=== PATIENT | female | born 1955 | race Caucasian/White ===

== ENCOUNTER 2019-05-27 21:21 | Inpatient (IN) | payer BC ==
[2019-05-27] MEDS ORDERED: MAGNE/ALUM HYDROXD 30 ML UCUP ONE (21:57)
[2019-05-27] MEDS ORDERED: ONDANSETRON 4 MG/2 ML VIAL ONE (21:58)
[2019-05-27] MEDS ORDERED: NA CHLORIDE 0.9% 500 ML ONE (21:58)
[2019-05-27] MEDS ORDERED: MEPERIDINE HCL 25 MG/0.5 ML ONE (21:58)
[2019-05-27] MEDS ORDERED: LIDOCAINE VISCOUS 2% SOLN 15 ML UDC ONE (21:59)
[2019-05-27 22:16] LABS: Absolute Lymphocytes (CBC) 1.4 K/uL (0.7-4.9); Basophils % 0.4 % (0-1.3); Lymphocytes % 13.5 % (15.3-44.8); MPV 8.6 fL (7.6-11.3); RBC Red Blood Cell Count 4.74 M/uL (3.86-4.86)
[2019-05-27 22:48] LABS: Albumin 3.7 g/dL (3.4-5.0); Bilirubin Direct 0.2 mg/dL (0-0.2); Bilirubin Total 0.7 mg/dL (0.2-1.0); Potassium 3.3 mmol/L (3.5-5.1); Protein, Total 7.4 g/dL (6.4-8.2)
[2019-05-27 22:54] LABS: Urine Blood 1+ (NEG); Urine Glucose NEGATIVE (NEG); Urine Protein NEGATIVE (NEG); Urine Specific Gravity 1.015 (1.005-1.030)
[2019-05-27 22:58] LABS: Urine Bacteria <20 /HPF (<20); Urine Culture Reflex Order NOT NEEDED; Urine RBC <5 /HPF (NONE SEEN)
--- NOTE | 2019-05-28 01:56 | ER ---
Nurse's Notes [facility] Name: Marion Dawson Age: 63 yrs Sex: Female : 1955 Arrival Date: 05/27/2019 Time: 21:24 Bed 16 Private MD: Diagnosis: Acute pancreatitis, unspecified Presentation: 05/27 21:50 Presenting complaint: Patient states: C/O on and off abd pain radiating to the back wh accompaied by nausea that started 4 days ago. Transition of care: patient was not received from another setting of care. Onset of symptoms was May 25, 2019. Risk Assessment: Do you want to hurt yourself or someone else? Patient reports no desire to harm self or others. Initial Sepsis Screen: Does the patient meet any 2 criteria? No. Patient's initial sepsis screen is negative. Does the patient have a suspected source of infection? No. Patient's initial sepsis screen is negative. Care prior to arrival: None. 21:50 Method Of Arrival: Ambulatory 21:50 Acuity: YANCY 3 wh Triage Assessment: 05/28 00:31 General: Appears in no apparent distress. Pain: Complains of pain in abdomen Pain wh radiates to back Pain currently is 8 out of 10 on a pain scale. Quality of pain is described as aching, Pain began 2-3 days ago. EENT: No signs and/or symptoms were reported regarding the EENT system. Neuro: Level of Consciousness is awake, alert, obeys commands, Oriented to person, place, time, situation, Appropriate for age. Cardiovascular: Heart tones S1 S2 Capillary refill < 3 seconds. Respiratory: Airway is patent Respiratory effort is even, unlabored, Respiratory pattern is regular, symmetrical. GI: Abdomen is flat, non-distended, Bowel sounds present X 4 quads. Abd is soft and non tender X 4 quads. : No signs and/or symptoms were reported regarding the genitourinary system. Derm: Skin is intact, is healthy with good turgor, Skin is pink, warm \T\ dry. normal. Musculoskeletal: Range of motion: intact in all extremities. Historical: - Allergies: 00:37 Lisinopril; 00:37 Phenobarbital; wh - PMHx: 00:37 Hypertension; wh - Immunization history:: Adult Immunizations up to date. - Social history:: Smoking status: Patient/guardian denies using tobacco. - Family history:: not pertinent. - Ebola Screening: : Patient negative for fever greater than or equal to 101.5 degrees Fahrenheit, and additional compatible Ebola Virus Disease symptoms Patient denies exposure to infectious person. - Hospitalizations: : No recent hospitalization is reported. Screenin:30 Abuse screen: Denies threats or abuse. Denies injuries from another. Nutritional wh screening: No deficits noted. Tuberculosis screening: No symptoms or risk factors identified. Fall Risk None identified. Assessment: 00:32 Reassessment: See Triage Assessment. wh 01:58 General: Appears in no apparent distress. Behavior is calm, cooperative, appropriate ea for age. Neuro: Level of Consciousness is awake, alert, obeys commands, Oriented to person, place, time, situation. Cardiovascular: Patient's skin is warm and dry. Respiratory: Airway is patent Respiratory effort is even, unlabored, Respiratory pattern is regular, symmetrical. Derm: Skin is pink, warm \T\ dry. Musculoskeletal: Circulation, motion, and sensation intact. 02:30 Reassessment: Patient and/or family updated on plan of care and expected duration. Pain ea level reassessed. Patient is alert, oriented x 3, equal unlabored respirations, skin warm/dry/pink. 03:44 Reassessment: Pt resting with eye closed, respirations even and unlabored. Chest ea expansions even and symmetrical. No s/s of pain or discomfort noted at this time. 07:29 Reassessment: PT TO U/S. bp Vital Signs: 05/27 23:30 BP 144 / 96; Pulse 86; Resp 18; Pulse Ox 98% on R/A; wh 05/28 00:38 BP 125 / 76; Pulse 86; Resp 18; Pulse Ox 97% on R/A; wh 01:40 BP 142 / 90; Pulse 91; Resp 18; Pulse Ox 97% on R/A; ea 02:00 BP 170 / 83; Pulse 94; Resp 18; Pulse Ox 98% on R/A; ea 03:00 BP 117 / 67; Pulse 74; Resp 18; Pulse Ox 95% on R/A; ea ED Course: 05/27 21:24 Patient arrived in ED. ag3 21:37 Juan Jose Lamas MD is Attending Physician. rn 21:51 Radiology exam delayed due to lab results not completed at this time. (BUN/Creatinine) 2 IV insertion attempt and/or patient not having appropriate IV at this time. 21:53 Tracy Walton is Primary Nurse. 22:07 Inserted saline lock: 22 gauge in right antecubital area, using aseptic technique. 6 22:15 Radiology exam delayed due to lab results not completed at this time. (BUN/Creatinine). 2 22:25 Radiology exam delayed due to lab results not completed at this time. (BUN/Creatinine). 2 22:38 Radiology exam delayed due to lab results not completed at this time. (BUN/Creatinine). [facility] 05/28 00:30 Triage completed. 00:34 Arm band placed on right wrist. 00:37 Patient has correct armband on for positive identification. Bed in low position. Call light in reach. Side rails up X 1. Pulse ox on. NIBP on. 01:11 CT completed. Patient tolerated procedure well. Patient moved to CT via stretcher. Patient moved back from CT. 01:12 CT Abd/Pelvis - IV Contrast Only In Process Unspecified. EDMS 01:55 Bry Pack DO is Hospitalizing Provider. rn 03:43 No provider procedures requiring assistance completed. Patient admitted, IV remains in ea place. Administered Medications: 05/27 22:00 Drug: GI Cocktail without - (Maalox Suspension 30 ml, Lidocaine Liquid 2 % 15 cc3 ml) Route: PO; 05/28 01:50 Follow up: Response: No adverse reaction 05/27 22:05 Drug: NS 0.9% 500 ml Route: IV; Rate: bolus; Site: right antecubital; [facility] 05/28 03:45 Follow up: IV Status: Completed infusion; IV Intake: 500ml 05/27 22:10 Drug: Demerol 25 mg {Note: RASS 0.} Route: IVP; Site: right antecubital; [facility] 05/28 01:50 Follow up: Response: No adverse reaction; RASS: Alert and Calm (0) 05/27 22:15 Drug: Zofran 4 mg Route: IVP; Site: right antecubital; [facility] 05/28 03:45 Follow up: Response: No adverse reaction ea Intake: 03:45 IV: 500ml; Total: 500ml. ea Outcome: 01:55 Decision to Hospitalize by Provider. rn 03:43 Admitted to ER Hold. Please see [facility] for further documentation. ea 03:43 Condition: stable 03:43 Instructed on the need for admit. 08:08 Patient left the ED. ph Signatures: Dispatcher [employer] Chris Velez Roman, MD MD rn Hall, Patricia, RN RN Eryn Gibson [facility] Rina Jackson RN RN ea Habalo, Winsy wh Peltier, Brian, RN RN Albina Pérez 3 Viv Guthrie 3 Jeri Cesar cm6
--- NOTE | 2019-05-28 01:57 | EDPHYS ---
Physician Documentation [facility] Name: Marion Dawson Age: 63 yrs Sex: Female : 1955 Arrival Date: 05/27/2019 Time: 21:24 Bed 16 Private MD: ED Physician Juan Jose Lamas HPI: 05/27 21:52 This 63 yrs old Female presents to ER via Unassigned with complaints of rn Abdominal Pain. 21:52 The patient presents with abdominal pain in the upper abdomen. Onset: The rn symptoms/episode began/occurred 1 week(s) ago. The symptoms radiate to back. Associated signs and symptoms: Pertinent positives: fever, nausea, Pertinent negatives: blood in stools, constipation, diarrhea, dysuria, palpitations, shortness of breath, vomiting. Modifying factors: The symptoms are alleviated by nothing, the symptoms are aggravated by food. Severity of pain: At its worst the pain was moderate in the emergency department the pain has improved. The patient has not experienced similar symptoms in the past. The patient has not recently seen a physician. Historical: - Allergies: 05/28 00:37 Lisinopril; wh 00:37 Phenobarbital; wh - PMHx: 00:37 Hypertension; wh - Immunization history:: Adult Immunizations up to date. - Social history:: Smoking status: Patient/guardian denies using tobacco. - Family history:: not pertinent. - Ebola Screening: : Patient negative for fever greater than or equal to 101.5 degrees Fahrenheit, and additional compatible Ebola Virus Disease symptoms Patient denies exposure to infectious person. - Hospitalizations: : No recent hospitalization is reported. ROS: 05/27 21:52 Constitutional: + fever Eyes: Negative for injury, pain, redness, and discharge, Neck: rn Negative for injury, pain, and swelling, Cardiovascular: Negative for chest pain, palpitations, and edema, Respiratory: Negative for shortness of breath, cough, wheezing, and pleuritic chest pain, Abdomen/GI: + abdominal pain, + nausea MS/Extremity: Negative for injury and deformity, Skin: Negative for injury, rash, and discoloration, Neuro: + headache and generalized fatigue Exam: 21:52 Constitutional: This is a well developed, well nourished patient who is awake, alert, rn and in no acute distress. Head/Face: Normocephalic, atraumatic. Eyes: Pupils equal round and reactive to light, extra-ocular motions intact. Lids and lashes normal. Conjunctiva and sclera are non-icteric and not injected. Cornea within normal limits. Periorbital areas with no swelling, redness, or edema. ENT: MMM Cardiovascular: Regular rate and rhythm. No pulse deficits. Respiratory: No increased work of breathing, no retractions or nasal flaring. Abdomen/GI: soft, + mild epigastric tenderness, no rebound MS/ Extremity: Pulses equal, no cyanosis. Neurovascular intact. Full, normal range of motion. Equal circumference. Neuro: Awake and alert, GCS 15, oriented to person, place, time, and situation. Cranial nerves II-XII grossly intact. Motor strength 5/5 in all extremities. Sensory grossly intact. Vital Signs: 23:30 BP 144 / 96; Pulse 86; Resp 18; Pulse Ox 98% on R/A; wh 05/28 00:38 BP 125 / 76; Pulse 86; Resp 18; Pulse Ox 97% on R/A; wh 01:40 BP 142 / 90; Pulse 91; Resp 18; Pulse Ox 97% on R/A; ea 02:00 BP 170 / 83; Pulse 94; Resp 18; Pulse Ox 98% on R/A; ea 03:00 BP 117 / 67; Pulse 74; Resp 18; Pulse Ox 95% on R/A; ea MDM: 05/27 21:37 Patient medically screened. rn 05/28 01:53 Differential diagnosis: cholecystitis, Cholelithiasis, diverticulitis, gastritis, rn gastroesophageal reflux disease, non-specific abd pain, pancreatitis. Data reviewed: vital signs, nurses notes, lab test result(s), radiologic studies, CT scan, and as a result, I will admit patient. Counseling: I had a detailed discussion with the patient and/or guardian regarding: the historical points, exam findings, and any diagnostic results supporting the discharge/admit diagnosis, lab results, radiology results, the need for further work-up and treatment in the hospital. Response to treatment: the patient's symptoms have mildly improved after treatment, and as a result, I will admit patient. Admission orders: after a detailed discussion of the patient's condition and case, the admit orders are written by me. ED course: Patient with acute pancreatitis, no gallbladder pathology, never had pancreatitis before, will admit to Dr. Pack for further testing and pain control/fluids.. 05/27 21:48 Order name: Basic Metabolic Panel; Complete Time: 23:39 05/27 21:48 Order name: CBC with Diff; Complete Time: 23:39 05/27 21:48 Order name: Hepatic Function; Complete Time: 23:39 05/27 21:48 Order name: Lipase; Complete Time: 23:39 05/27 21:55 Order name: Urine Microscopic Only; Complete Time: 23:39 05/27 22:31 Order name: Urine Dipstick--Ancillary (enter results); Complete Time: 23:39 ag4 05/27 21:48 Order name: CT Abd/Pelvis - IV Contrast Only 05/28 00:20 Order name: Lipid Profile 05/28 00:37 Order name: Lipid Profile; Complete Time: 01:27 EDMS 05/28 06:24 Order name: T4 Free EDDE 05/28 06:24 Order name: Lipase [facility] 05/28 06:24 Order name: Thyroid Stimulating Hormone [facility] 05/27 21:48 Order name: IV Saline Lock; Complete Time: 22:17 05/27 21:48 Order name: Labs collected and sent; Complete Time: 22:35 05/27 21:55 Order name: Urine Dipstick-Ancillary (obtain specimen); Complete Time: 23:36 rn Administered Medications: 05/27 22:00 Drug: GI Cocktail without - (Maalox Suspension 30 ml, Lidocaine Liquid 2 % 15 cc3 ml) Route: PO; 05/28 01:50 Follow up: Response: No adverse reaction 05/27 22:05 Drug: NS 0.9% 500 ml Route: IV; Rate: bolus; Site: right antecubital; [facility] 05/28 03:45 Follow up: IV Status: Completed infusion; IV Intake: 500ml 05/27 22:10 Drug: Demerol 25 mg {Note: RASS 0.} Route: IVP; Site: right antecubital; [facility] 05/28 01:50 Follow up: Response: No adverse reaction; RASS: Alert and Calm (0) 05/27 22:15 Drug: Zofran 4 mg Route: IVP; Site: right antecubital; [facility] 05/28 03:45 Follow up: Response: No adverse reaction ea Disposition: 05/28/19 01:55 Hospitalization ordered by Bry Pack for Observation. Preliminary diagnosis is Acute pancreatitis, unspecified. - Bed requested for Telemetry/MedSurg (observation). - Status is Observation. ph - Condition is Stable. - Problem is new. - Symptoms have improved. UTI on Admission? No Signatures: Dispatcher [employer] EDMS Sharon Hester RN RN Juan Jose Lamas MD MD rn Hall, Patricia, RN RN Isabelle, Tracy Albina Yepez cc3 Rina Jackson RN, ea Corrections: (The following items were deleted from the chart) 02:57 01:55 Hospitalization Ordered by Bry Pack DO for Observation. Preliminary diagnosis is Acute pancreatitis, unspecified. Bed requested for Telemetry/MedSurg (observation). Status is Observation. Condition is Stable. Problem is new. Symptoms have improved. UTI on Admission? No. rn 05:46 02:57 05/28/2019 01:55 Hospitalization Ordered by Bry Pack DO for Observation. mw Preliminary diagnosis is Acute pancreatitis, unspecified. Bed requested for [facility] ER HOLD. Status is Observation. Condition is Stable. Problem is new. Symptoms have improved. UTI on Admission? No. mw 08:08 05:46 05/28/2019 01:55 Hospitalization Ordered by Bry Pack DO for Observation. ph Preliminary diagnosis is Acute pancreatitis, unspecified. Bed requested for Telemetry/MedSurg (observation). Status is Observation. Condition is Stable. Problem is new. Symptoms have improved. UTI on Admission? No. mw
--- NOTE | 2019-05-28 02:18 | P.HP ---
Certification for Inpatient Patient admitted to: Observation With expected LOS: <2 Midnights Patient will require the following post-hospital care: None Practitioner: I am a practitioner with admitting privileges, knowledge of patient current condition, hospital course, and medical plan of care. Services: Services provided to patient in accordance with Admission requirements found in Title 42 Section 412.3 of the Code of Federal Regulations Patient History Date of Service: 05/28/19 Primary Care Provider: Dr. Rolle; GI-Dr. Greene([place], [place]) Reason for admission: Epigastric abdominal pain History of Present Illness: 63-year-old female presented to the emergency room with epigastric abdominal pain, nausea and vomiting. Patient with history of hypertension and diverticulitis presented to the emergency room with epigastric abdominal pain. She reported that she has been having pain over the last week. It has been getting progressively worse. She rated the pain today around 10/10. It was associated with some nausea and vomiting. She denies any fever, chills. Denies any significant diarrhea or constipation. Pain was worse with food. She did report sinus congestion with headache today. No sick contacts noted. In the ER patient evaluated. Lipase elevated at 1025. AST, ALT and total bilirubin within normal range. Triglycerides 63. White count 10.3, hemoglobin 13. Sodium 131, potassium 3.3. CT abdomen shows mild pancreatitis. No biliary abnormality noted. Gallbladder appears normal. Patient was admitted for further evaluation and treatment. When I saw the patient ER, pain improved. She is without any significant distress. She denies any alcohol use. She denies any recent new medications other than restarting probiotics recently. This is her 1st episode of pancreatitis. Home medications list reviewed: Yes - Past Medical/Surgical History Diabetic: No -: Hypertension -: Diverticulitis -: Psychosocial/ Personal History: Patient is and lives at home. - Family History Mother -: Cancer (Breast cancer) - Social History Smoking Status: Never smoker Alcohol use: No CD- Drugs: No Caffeine use: Yes Place of Residence: Home Review of Systems General: As per HPI Eyes: Unremarkable ENT: Unremarkable Respiratory: Unremarkable Cardiovascular: Unremarkable Gastrointestinal: Nausea, Vomiting, Abdominal Pain, As per HPI Genitourinary: Unremarkable Musculoskeletal: Unremarkable Integumentary: Unremarkable Neurological: Unremarkable Lymphatics: Unremarkable Physical Examination - Physical Exam General: Alert, In no apparent distress, Oriented x3, Cooperative HEENT: Atraumatic, Normocephalic, PERRLA, Other (Mild dry mucous membranes) Neck: Supple, No Thyromegaly Respiratory: Clear to auscultation bilaterally, Normal air movement Cardiovascular: Normal pulses, Regular rate/rhythm Gastrointestinal: Normal bowel sounds, Soft and benign, Non-distended, No masses , No rebound, No guarding, Tenderness (Mild pain to the epigastric region) Musculoskeletal: No contractures, No erythema, No tenderness, No warmth Integumentary: No tenderness/swelling, No erythema, No warmth, No cyanosis Neurological: Normal speech, Normal strength at 5/5 x4 extr, Normal tone, Normal affect - Studies Laboratory Data (last 24 hrs) 05/27/19 22:03: Triglycerides 63, Cholesterol 164, HDL Cholesterol 62 H, Cholesterol/HDL Ratio 2.65 05/27/19 22:03: WBC 10.3, Hgb 13.6, Hct 40.0, Plt Count 276 05/27/19 22:03: Sodium 131 L, Potassium 3.3 L, BUN 5 L, Creatinine 0.70, Glucose 112 H, Total Bilirubin 0.7, AST 12 L, ALT 19, Alkaline Phosphatase 99, Lipase 1025 H Assessment and Plan - Plan Impression: Epigastric abdominal pain with nausea and vomiting secondary to acute mild pancreatitis likely viral Hypokalemia with hyponatremia likely related to underlying dehydration Hypertension Plan: Epigastric abdominal pain with nausea and vomiting secondary to acute mild pancreatitis likely viral: Patient will be admitted for further evaluation and treatment. This is her 1st episode of pancreatitis. This is likely viral in nature as triglycerides within normal range, LFTs and bili Wilson within normal range. CT scan did not reveal any biliary abnormality along with normal gallbladder. Will obtain gallbladder ultrasound to further assess. Will obtain blood cultures to rule out bacterial etiology. Will keep the patient NPO at this time. Will provide medication for nausea and pain. Encourage ambulation. Will advance diet once pain better controlled. Likely discharge in the next 24-48 hr with clinical improvement. Patient may follow up with her GI specialist as an outpatient. Daytime hospitalist team will continue care. Hypokalemia with hyponatremia likely related to underlying dehydration: Will continue with IV fluids. Will replace electrolytes. Continue monitor closely. Hypertension: Patient takes Arb inhibitor, hydrochlorothiazide and metoprolol at home. Will provide IV Lopressor at this time to maintain blood pressure less than 160 systolic. Once able to take oral intake then her medications can be restarted. Discharge Plan: Home Plan to discharge in: 48 Hours - Advance Directives Does patient have a Living Will: No Does patient have a Durable POA for Healthcare: No - Code Status/Comfort Care Code Status Assessed: Yes (Patient is full code) Time Spent Managing Pts Care (In Minutes): 55
[2019-05-28] MEDS ORDERED: ACETAMINOPHEN 500 MG TAB PO PRN (05:04)
[2019-05-28] MEDS: NA CHLORIDE 0.9% 1,000 ML IV SCH ×2 (05:04→15:04)
[2019-05-28] MEDS ORDERED: ACETAMINOPHEN 650MG/RECT SUPP RECT PRN (05:04)
[2019-05-28] MEDS ORDERED: ONDANSETRON 4 MG/2 ML VIAL ONE (06:18)
[2019-05-28] MEDS ORDERED: MORPHINE 2 MG/ML SYR ONE (06:18)
[2019-05-28 06:24] LABS: Thyroid Stimulating Hormone 3.5 uIU/mL (0.360-3.740)
[2019-05-28] MEDS: ONDANSETRON 4 MG/2 ML VIAL IV PRN ×2 (06:25→14:08)
[2019-05-28] MEDS: MORPHINE 2 MG/ML SYR IV PRN ×2 (06:26→14:07)
[2019-05-28] MEDS ORDERED: POTASSIUM CL 40 MEQ in NA CHLORIDE 0.9% 500 ML IV SCH (08:00)
[2019-05-28] MEDS: FAMOTIDINE 20 MG/2 ML VIAL IV SCH ×2 (08:46→20:52)
[2019-05-28] MEDS: ENOXAPARIN 40 MG/0.4 ML SQ SCH (08:47)
[2019-05-28] MEDS ORDERED: METOPROLOL TARTRATE 5 MG/5 ML INJ IV PRN (09:00)
--- NOTE | 2019-05-28 10:29 | RAD REPORT ---
EXAM DESCRIPTION: US - Abdomen Exam Complete - 05/28/2019 7:52 am CLINICAL HISTORY: Abdominal pain COMPARISON: May 28, 2019 cat scan FINDINGS: The liver has an increased echotexture. A gallstone is not seen. The gallbladder wall is not thickened. The biliary tree is normal caliber. The pancreas is enlarged and heterogeneous. A pseudocyst is not seen The right kidney measures 10 centimeters with a normal echotexture. The left kidney measures 10 centimeters with a normal echotexture. The spleen measures 11 centimeters. The abdominal aorta and inferior vena cava appear unremarkable IMPRESSION: Pancreatitis Increased hepatic echotexture consistent with fatty infiltration
--- NOTE | 2019-05-28 11:00 | RAD REPORT ---
EXAM DESCRIPTION: CT - Abdomen Pelvis W Contrast - 05/28/2019 5:38 am CLINICAL HISTORY: Abdominal pain. COMPARISON: None. TECHNIQUE: Axial CT imaging of the abdomen and pelvis performed with intravenous contrast. Reformatt ed coronal and sagittal images reviewed. A dose reduction technique was utilized with automated exposure control according to patient size. FINDINGS: LOWER THORAX: Minimal lingula atelectasis. There is a noncalcified subpleural 9 mm nodule posterior lateral left lower lobe. Heart is normal in size. ABDOMEN: LIVER/GALLBLADDER: Mild decreased attenuation due to fatty infiltration. Upper normal liver size. No liver mass or biliary dilatation. Normal gallbladder. SPLEEN/PANCREAS: Normal spleen. There is mild edema within the peripancreatic fat adjacent to the pa ncreatic body and tail. No duct dilatation or mass. The pancreatic parenchyma is mildly edematous thr oughout the body. Normal appearance of the splenic artery and vein. KIDNEYS/ADRENAL GLANDS: Normal adrenal glands. Unremarkable right and left kidney. RETROPERITONEAL VESSELS/NODES: Mild aorta atherosclerosis. Normal aorta and inferior vena cava calib er. No adenopathy. Mesenteric vessels are well-opacified. BOWEL: Normal stomach. The small bowel loops appear normal. Normal appendix in retrocecal position i n the right lower quadrant. Mild descending and sigmoid colon diverticulosis. No diverticulitis. MESENTERY/PERITONEUM: No central mesenteric adenopathy. No ascites or free air. PELVIS: BLADDER/GENITAL ORGANS: Normal bladder. Normal uterus and ovaries. PERITONEUM: No free fluid or adenopathy. BONES AND SOFT TISSUES: Vacuum disc at L5-S1. Normal bony pelvis and hips. No soft tissue body. IMPRESSION: 1. Mild pancreatitis with no evidence of pseudocyst, necrosis, or pancreatic mass. No pa ncreatic duct dilatation. No biliary stone. 2. Mild hepatic steatosis. 3. Mild descending and sigmoid colon diverticulosis. No diverticulitis. 4. 9 mm left lower lobe noncalcified pulmonary nodule. 9.0 mm solid pulmonary nodule. Consider a non-contrast Chest CT at 3 months, a PET/CT, or tissue samp ling. These guidelines do not apply to patients younger than 35 years, immunocompromised patients, and alejandra ents with cancer. Follow up in patients with significant comorbidities as clinically warranted. For l jasmin cancer screening, adhere to Lung-RADS guidelines. Reference: Radiology. 2017; 284(1):228-43. Electronically signed by: Alcira Doll DO 05/28/2019 1:32 AM CDT Due to temporary technical issues with the PACS/Fluency reporting system, reports are being signed by the in house radiologist as a courtesy to ensure prompt reporting. The interpreting radiologist is f ully responsible for the content of the report.
[2019-05-28 15:12] LABS: Urine Appearance CLEAR; Urine Bilirubin NEGATIVE (NEG); Urine Blood 1+ (NEG); Urine Color YELLOW; Urine Glucose NEGATIVE (NEG); Urine Protein NEGATIVE (NEG); Urine Specific Gravity 1.015 (1.005-1.030); Urine Urobilinogen 0.2 mg/dL (0.2-1.0)
[2019-05-28 15:15] LABS: Urine Microscopic Reflex ORDER UMIC
[2019-05-28 15:25] LABS: Urine Bacteria >50 /HPF (<20); Urine Culture Reflex Order REFLEXED
[2019-05-29] MEDS: NA CHLORIDE 0.9% 1,000 ML IV SCH (02:01)
[2019-05-29 06:25] LABS: Basophils % 0.5 % (0-1.3); Hematocrit 36.3 % (36.0-45.0); MPV 8.7 fL (7.6-11.3); RBC Red Blood Cell Count 4.26 M/uL (3.86-4.86)
[2019-05-29 06:45] LABS: ALT/SGPT 21 U/L (12-78); AST/SGOT 19 U/L (15-37); Albumin 3.1 g/dL (3.4-5.0); Alkaline Phosphatase 76 U/L (45-117); BUN Blood Urea Nitrogen 5 mg/dL (7-18); Bicarbonate 25 mmol/L (21-32); Bilirubin Total 0.5 mg/dL (0.2-1.0); Glucose Level 106 mg/dL (74-106); Lipase 1077 U/L (73-393); Magnesium 2.4 mg/dL (1.8-2.4); Potassium 4.3 mmol/L (3.5-5.1); Protein, Total 6.4 g/dL (6.4-8.2); Sodium Level 138 mmol/L (136-145)
[2019-05-29] MEDS: ENOXAPARIN 40 MG/0.4 ML SQ SCH (08:11)
[2019-05-29] MEDS: FAMOTIDINE 20 MG/2 ML VIAL IV SCH (08:11)
--- NOTE | 2019-05-29 11:34 | P.DS ---
Admission Date: 05/28/19 Discharge Date: 05/29/19 Primary Care Provider: Dr. Rolle; GI-Dr. Greene([place], [place]) Disposition: ROUTINE DISCHARGE Discharge Condition: GOOD Reason for Admission: Epigastric abdominal pain Brief History of Present Illness: 63-year-old female presented to the emergency room with epigastric abdominal pain, nausea and vomiting. Patient with history of hypertension and diverticulitis presented to the emergency room with epigastric abdominal pain. She reported that she has been having pain over the last week. It has been getting progressively worse. She rated the pain today around 10/10. It was associated with some nausea and vomiting. She denies any fever, chills. Denies any significant diarrhea or constipation. Pain was worse with food. She did report sinus congestion with headache today. No sick contacts noted. In the ER patient evaluated. Lipase elevated at 1025. AST, ALT and total bilirubin within normal range. Triglycerides 63. White count 10.3, hemoglobin 13. Sodium 131, potassium 3.3. CT abdomen shows mild pancreatitis. No biliary abnormality noted. Gallbladder appears normal. Patient was admitted for further evaluation and treatment. When I saw the patient ER, pain improved. She is without any significant distress. She denies any alcohol use. She denies any recent new medications other than restarting probiotics recently. This is her 1st episode of pancreatitis. Hospital Course: Overall during the hospital stay patient remained stable Patient was initially admitted to the hospital for acute pancreatitis was started on IV fluids and pain management while here in the hospital. Patient had lipid panel done here along with abdominal CT and ultrasound to find the cause of the pancreatitis. Abdominal CT was negative for any gallbladder abnormality. Was positive for hepatic fatty infiltration. Abdominal ultrasound was also positive for hepatic infiltration. Patient's lipid panel was within normal limits. Once patient was feeling better her diet was advanced which she tolerated well and was advanced to a GI soft diet further. Patient did well overall and thus was discharged home under stable condition and was asked to follow up with primary care provider in about 1-2 days post discharge. Patient was asked to continue on low-cholesterol diet while at home. Vital Signs/Physical Exam: Temp Pulse Resp BP Pulse Ox 97.0 F 80 16 141/74 H 95 05/29/19 08:00 05/29/19 08:00 05/29/19 08:00 05/29/19 08:00 05/29/19 08:00 General: Alert, In no apparent distress HEENT: Atraumatic, PERRLA, EOMI Neck: Supple, JVD not distended Respiratory: Clear to auscultation bilaterally, Normal air movement Cardiovascular: Regular rate/rhythm, Normal S1 S2 Gastrointestinal: Normal bowel sounds, No tenderness Musculoskeletal: No tenderness Integumentary: No rashes Neurological: Normal speech, Normal tone, Normal affect Lymphatics: No axilla or inguinal lymphadenopathy Laboratory Data at Discharge: WBC 6.3 K/uL (4.3-10.9) D 05/29/19 06:08 Hgb 12.2 g/dL (12.0-15.0) 05/29/19 06:08 Hct 36.3 % (36.0-45.0) 05/29/19 06:08 Plt Count 245 K/uL (152-406) 05/29/19 06:08 Sodium 138 mmol/L (136-145) 05/29/19 06:08 Potassium 4.3 mmol/L (3.5-5.1) 05/29/19 06:08 BUN 5 mg/dL (7-18) L 05/29/19 06:08 Creatinine 0.62 mg/dL (0.55-1.3) 05/29/19 06:08 Glucose 106 mg/dL (74-106) 05/29/19 06:08 Magnesium 2.4 mg/dL (1.8-2.4) 05/29/19 06:08 Total Bilirubin 0.5 mg/dL (0.2-1.0) 05/29/19 06:08 AST 19 U/L (15-37) 05/29/19 06:08 ALT 21 U/L (12-78) 05/29/19 06:08 Alkaline Phosphatase 76 U/L (45-117) 05/29/19 06:08 Triglycerides 63 mg/dL (<150) 05/27/19 22:03 Cholesterol 164 mg/dL (<200) 05/27/19 22:03 HDL Cholesterol 62 mg/dL (40-60) H 05/27/19 22:03 Cholesterol/HDL Ratio 2.65 05/27/19 22:03 Lipase 1077 U/L (73-393) H 05/29/19 06:08 Home Medications: Metoprolol Succinate [Toprol Xl] 1 tab PO DAILY 05/28/19 Olmesartan Medoxomil 1 tab PO DAILY 05/28/19 hydroCHLOROthiazide [Hydrochlorothiazide*] 1 tab PO DAILY 05/28/19 Amoxicillin/Potassium Clav [Augmentin 875-125 Tablet] 1 each PO BID #14 tablet 05/29/19 New Medications: Amoxicillin/Potassium Clav [Augmentin 875-125 Tablet] 1 each PO BID #14 tablet Diet: Regular Activity: Ad hawa Followup: Jay Fish MD [ASSOCIATE-ACTIVE - CAN ADMIT] - (call to schedule appointment)
== END 2019-05-29 11:18 | disposition home or self-care (01) | DRG 439 ==
LOC: ER 21:21 → ERHOLD 05-28 02:06 → 4TH 05-28 07:57 → OBSVTOIN 05-28 11:10
PROVIDERS: ADMIT Family Medicine; ATTEND Family Medicine
DX: K85.80 Other acute pancreatitis without necrosis or infection (principal); E87.1 Hypo-osmolality and hyponatremia; E86.0 Dehydration; E87.6 Hypokalemia; I10 Essential (primary) hypertension
CPT/HCPCS: 36415; 74177; 76700; 80048; 80053; 80061; 80076; 81003; 81015; 83690; 83735; 84132; 84439; 84443; 85025; 87040; 87077; 87086; 87088; 87186; 96361; 96374; 96375; 99285; G0378; J1650; J2175; J2270; J2405; J7030; Q9967

== ENCOUNTER 2019-09-05 00:06 | Emergency (ER) | payer BC ==
--- OUTSIDE RECORDS SUMMARY | 2019-09-05 00:09 | XMS REPORT | Summary of Care ---
:1955 Author Organization [facility] - Health Address [address] [place] [address] Care Team Providers Name Role Phone Emmett Rolle MD Primary Care Provider Encounter Details Date Type Department Care Team Description 06/01/2019 Orders Only [facility] Doctor Unassigned, No [address] [facility] [place] [address] [address] [place] [id number] Allergies Active Allergy Reactions Severity Noted Date Comments Iodine And Iodide Other - See comments 01/23/2017 Broke out in Containing Products blisters Phenobarbital Sodium Unknown - See 02/23/2016 comments documented as of this encounter (statuses as of 06/01/2019) Medications Medication Sig Dispensed Refills Start Date End Date Status OXYBUTYNIN (OXYTROL FOR Apply to 0 Active WOMEN TRANSDERMAL) skin. loratadine 10 mg Take 1 tablet 30 tablet 11 11/14/2017 Active tabletIndications: by mouth Allergic rhinitis, daily. unspecified chronicity, unspecified seasonality, unspecified trigger hydroCHLOROthiazide 12.5 Take 1 90 capsule 4 04/01/2019 Active mg capsuleIndications: capsule by Essential hypertension mouth daily. metoprolol succinate XL Take 1 tablet 90 tablet 4 04/01/2019 Active 100 mg 24 hr by mouth tabletIndications: daily. Essential hypertension olmesartan 40 mg Take 1 tablet 90 tablet 4 04/01/2019 Active tabletIndications: by mouth Essential hypertension daily. mupirocin (BACTROBAN) 2 % Apply to 22 g 0 04/01/2019 Active ointmentIndications: Open area(s) 3 wound of left lower leg, (three) times initial encounter daily. documented as of this encounter (statuses as of 06/01/2019) Active Problems Problem Noted Date Essential hypertension 02/23/2016 Hyperlipidemia 02/23/2016 Psoriasis 02/23/2016 documented as of this encounter (statuses as of 06/01/2019) Social History Tobacco Use Types Packs/Day Years Used Date Never Smoker Smokeless Tobacco: Never Used Alcohol Use Drinks/Week oz/Week Comments No 0 Standard drinks or equivalent 0.0 Sex Assigned at Date Recorded Not on file Job Start Date Occupation Industry Not on file Not on file Not on file Travel History Travel Start Travel End No recent travel history available. documented as of this encounter Last Filed Vital Signs Not on filedocumented in this encounter Plan of Treatment Health Maintenance Due Date Last Done Comments HEPATITIS C (HCV) SCREEN 1955 DTaP,Tdap,and Td Vaccines (1 - 1976 Tdap) PAP SMEAR 1978 MAMMOGRAM 1997 COLONOSCOPY 2007 Zoster Recombinant Vaccine 2007 (SHINGRIX) (1 of 2) INFLUENZA VACCINE 06/21/2019 PNEUMOCOCCAL 0-64 YEARS COMBINED Aged Out No longer eligible based on SERIES patient's age to complete this topic documented as of this encounter Procedures Procedure Name Priority Date/Time Associated Diagnosis Comments EXTERNAL PROVIDER Routine 06/01/2019 12:01 AM CDT RECORDS documented in this encounter Results Not on filedocumented in this encounter Insurance Payer Benefit Plan Subscriber ID Effective Dates Phone Address Type / Group [facility] [id number] 2011-Stephanie [phone] [address] PPO/POS [place] - OUT OF t 87 [id number] [place] [address] documented as of this encounter
--- OUTSIDE RECORDS SUMMARY | 2019-09-05 00:09 | XMS REPORT | Summary of Care ---
:1955 Author Organization [facility] - [facility] Address [address] [place] [address] Care Team Providers Name Role Phone Emmett Rolle MD Primary Care Provider Reason for Referral MRI/CAT Scan (Routine) Status Reason Specialty Diagnoses / Referred By Referred To Procedures Contact Contact New Request Diagnostic Diagnoses Incidental pulmonary nodule Emmett Rolle Radiology Procedures CT THORAX WO CONTRAST MD G[facility]ardo [facility] [place] [address] Reason for Visit Reason Comments Follow-up hospital Encounter Details Date Type Department Care Team Description 06/03/2019 Office Visit [facility] Family Emmett Rolle Idiopathic acute pancreatitis without infection or necrosis (Primary Dx); Medicine - Charmaine Ewing MD Incidental pulmonary nodule [address] [place] [address] [place] [phone] Allergies Active Allergy Reactions Severity Noted Date Comments Iodine And Iodide Other - See comments 01/23/2017 Broke out in Containing Products blisters Phenobarbital Sodium Unknown - See 02/23/2016 comments documented as of this encounter (statuses as of 06/03/2019) Medications Medication Sig Dispensed Refills Start End Date Status Date hydroCHLOROthiazide 12.5 Take 1 90 capsule 4 Active mg capsuleIndications: capsule by 9 Essential hypertension mouth daily. metoprolol succinate XL Take 1 90 tablet 4 Active 100 mg 24 hr tablet by 9 tabletIndications: mouth daily. Essential hypertension olmesartan 40 mg Take 1 90 tablet 4 Active tabletIndications: tablet by 9 Essential hypertension mouth daily. amoxicillin-clavulanate Take 1 0 06/08/20 Active 875-125 mg per tablet tablet by 9 19 mouth 2 (two) times daily. OXYBUTYNIN (OXYTROL FOR Apply to 0 06/03/20 Discontinued WOMEN TRANSDERMAL) skin. 19 loratadine 10 mg Take 1 30 tablet 11 06/03/20 Discontinued tabletIndications: tablet by 8 19 Allergic rhinitis, mouth daily. unspecified chronicity, unspecified seasonality, unspecified trigger mupirocin (BACTROBAN) 2 Apply to 22 g 0 06/03/20 Discontinued % ointmentIndications: area(s) 3 9 19 Open wound of left lower (three) leg, initial encounter times daily. documented as of this encounter (statuses as of 06/03/2019) Active Problems Problem Noted Date Essential hypertension 02/23/2016 Hyperlipidemia 02/23/2016 Psoriasis 02/23/2016 documented as of this encounter (statuses as of 06/03/2019) Social History Tobacco Use Types Packs/Day Years [...] of this encounter Last Filed Vital Signs Vital Sign Reading Time Taken Comments Blood Pressure 133/77 06/03/2019 3:50 PM CDT Pulse 90 06/03/2019 3:50 PM CDT Temperature 36.4 C (97.6 F) 06/03/2019 3:50 PM CDT Respiratory Rate 16 06/03/2019 3:50 PM CDT Oxygen Saturation - - Inhaled Oxygen Concentration - - Weight 101.2 kg (223 lb) 06/03/2019 3:50 PM CDT Height 160 cm (5' 3") 06/03/2019 3:50 PM CDT Body Mass Index 39.5 06/03/2019 3:50 PM CDT documented in this encounter Progress Notes Emmett Rolle MD - 06/03/2019 4:00 PM CDT CC: hospital stay for pancreatitis [place] is a 63 year old female Work up negative for pancreatitis cause Only issue was UTI Feeling better now Sees [place] next Saturday Allergies Allergen Reactions Iodine And Iodide Containing Products Other - See comments Broke out in blisters Luminal [Phenobarbital Sodium] Unknown - See comments Current Outpatient Medications Medication Sig Dispense Refill amoxicillin-clavulanate 875-125 mg per tablet Take 1 tablet by mouth 2 (two ) times daily. hydroCHLOROthiazide 12.5 mg capsule Take 1 capsule by mouth daily. 90 capsule 4 metoprolol succinate XL 100 mg 24 hr tablet Take 1 tablet by mouth daily. 90 tablet 4 olmesartan 40 mg tablet Take 1 tablet by mouth daily. 90 tablet 4 No current facility-administered medications for this visit. Past Medical History: Diagnosis Date Hyperlipidemia Hypertension Overactive bladder Pancreatitis 05/26/2019 Psoriasis Past Surgical History: Procedure Laterality Date SECTION COLONOSCOPY 08/2018 Social History Socioeconomic History Marital status: Spouse name: Not on file Number of children: Not on file Years of education: Not on file Highest education level: Not on file Occupational History Not on file Social Needs Financial resource strain: Not on file Food insecurity: Worry: Not on file Inability: Not on file Transportation needs: Medical: Not on file Non-medical: Not on file Tobacco Use Smoking status: Never Smoker Smokeless tobacco: Never Used Substance and Sexual Activity Alcohol use: No Alcohol/week: 0.0 oz Drug use: No Sexual activity: Not on file Lifestyle Physical activity: Days per week: Not on file Minutes per session: Not on file Stress: Not on file Relationships Social connections: Talks on phone: Not on file Gets together: Not on file Attends worship service: Not on file Active member of club or organization: Not on file Attends meetings of clubs or organizations: Not on file Relationship status: Not on file Intimate partner violence: Fear of current or ex partner: Not on file Emotionally abused: Not on file Physically abused: Not on file Forced sexual activity: Not on file Other Topics Concern Not on file Social History Narrative Lives with Family History Problem Relation Age of Onset Cancer Mother breast Thyroid Mother Hypertension Mother Pulmonary Father Coronary Heart Disease Father Review of Systems BP 133/77 (BP Location: Left arm, Patient Position: Sitting, BP CUFF SIZE: Adult Large) | Pulse 90| Temp 36.4 C (97.6 F) (Tympanic) | Resp 16 | Ht 5 ' 3" (1.6 m) | Wt 223 lb (101.2 kg) | BMI 39.50 kg/m Physical Exam Constitutional: She is oriented to person, place, and time. She appears well- developed and well-nourished. HENT: Head: Normocephalic and atraumatic. Eyes: Pupils are equal, round, and reactive to light. Conjunctivae are normal. Neck: Normal range of motion. Neck supple. No JVD present. No tracheal deviation present. No thyromegaly present. Cardiovascular: Normal rate, regular rhythm, normal heart sounds and intact distal pulses. Exam reveals no gallop and no friction rub. No murmur heard. Pulmonary/Chest: Effort normal and breath sounds normal. No respiratory distress. She has no wheezes. She has no rales. She exhibits no tenderness. Abdominal: Soft. Bowel sounds are normal. She exhibits no distension and no mass. There is no tenderness. There is no rebound and no guarding. Musculoskeletal: Normal range of motion. She exhibits no edema or tenderness. Lymphadenopathy: She has no cervical adenopathy. Neurological: She is alert and oriented to person, place, and time. Skin: Skin is warm and dry. Diagnosis: 1. Idiopathic acute pancreatitis without infection or necrosis 2. Incidental pulmonary nodule CT THORAX WO CONTRAST Follow up: prn Patient Care Team: Emmett Rolle MD as PCP - General ([facility]AMILY MEDICINE) Plan of care, desired health behaviors, goals,& medication discussed with patient. Education resources & self management tools provided and reviewed with AVS. Patient/guardian/family verbalized understanding & agrees to plan of care. Barriers to care: None Ability to manage care: Good documented in this encounter Plan of Treatment Name Type Priority Associated Diagnoses Order Schedule CT THORAX WO CONTRAST IMAGING Routine Incidental pulmonary Expected: 2018, nodule Expires: 06/03/2020 Health Maintenance Due Date Last Done Comments HEPATITIS C (HCV) SCREEN 1955 DTaP,Tdap,and Td Vaccines (1 - 1976 Tdap) PAP SMEAR 1978 MAMMOGRAM 1997 COLONOSCOPY 2007 Zoster Recombinant Vaccine 2007 (SHINGRIX) (1 of 2) INFLUENZA VACCINE 06/21/2019 PNEUMOCOCCAL 0-64 YEARS COMBINED Aged Out No longer eligible based on SERIES patient's age to complete this topic documented as of this encounter Results Not on filedocumented in this encounter Visit Diagnoses Diagnosis Idiopathic acute pancreatitis without infection or necrosis - Primary Incidental pulmonary nodule Solitary pulmonary nodule documented in this encounter Insurance Payer Benefit Plan Subscriber ID Effective Dates Phone Address Type / Group [facility] [id number] 2011-Stephanie [phone] [address] PPO/POS [place] - OUT OF t 87 [id number] [place] [address] documented as of this encounter
--- OUTSIDE RECORDS SUMMARY | 2019-09-05 00:09 | XMS REPORT | Summary of Care ---
:1955 Author Organization [facility] - [facility] Address [address] [place] [address] Care Team Providers Name Role Phone Emmett Rolle MD Primary Care Provider Reason for Referral MRI/CAT Scan (Routine) Status Reason Specialty Diagnoses / Referred By Referred To Procedures Contact Contact New Request Diagnostic Diagnoses Incidental pulmonary nodule Emmett Rolle Radiology Procedures CT THORAX WO CONTRAST MD Gildardo [facility] E [facility] [place] [address] Reason for Visit Reason Comments Follow-up hospital Encounter Details Date Type Department Care Team Description 06/03/2019 Office Visit [facility] Family Emmett Rolle Idiopathic acute pancreatitis without infection or necrosis (Primary Dx); Medicine - Charmaine Ewing MD Incidental pulmonary nodule [address] [place] [address] [place] [phone] Allergies Active Allergy Reactions Severity Noted [...] file Gets together: Not on file Attends anglican service: Not on file Active member of [...] Effective Dates Phone Address Type / Group [facility] [id number] 2011-Stephanie [phone] [address] PPO/POS [place] - OUT OF t 87 [id number] [place] [address] documented as of this encounter
--- OUTSIDE RECORDS SUMMARY | 2019-09-05 00:09 | XMS REPORT ---
:1955 Author [facility] Address [address] [place] [address] Dr. [place] [address] [place] [address] Care Team Providers Name Role Phone Unavailable Unavailable Unavailable Problems This patient has no known problems. Allergies, Adverse Reactions, Alerts This patient has no known allergies or adverse reactions. Medications This patient has no known medications.
--- OUTSIDE RECORDS SUMMARY | 2019-09-05 00:10 | XMS REPORT | Summary of Care ---
:1955 Author Organization [facility] Address [address] [place] [address] Care Team Providers Name Role Phone Emmett Rolle MD Primary Care Provider Reason for Visit Reason Comments Follow-up Encounter Details Date Type Department Care Team Description 07/08/2019 Office Visit [facility] Family Emmett Rolle Idiopathic acute pancreatitis without infection or necrosis (Primary Dx); Medicine - Charmaine Ewing MD Essential hypertension [facility] [address] [facility] [address] [facility] [address], [place] [phone] Allergies Active Allergy Reactions Severity Noted Date Comments Iodine And Iodide Other - See comments 01/23/2017 Broke out in Containing Products blisters Phenobarbital Sodium Unknown - See 02/23/2016 comments documented as of this encounter (statuses as of 07/08/2019) Medications Medication Sig Dispensed Refills Start Date End Date Status hydroCHLOROthiazide 12.5 Take 1 90 capsule 4 04/01/2019 Active mg capsuleIndications: capsule by Essential hypertension mouth daily. metoprolol succinate XL Take 1 tablet 90 tablet 4 04/01/2019 Active 100 mg 24 hr by mouth tabletIndications: daily. Essential hypertension olmesartan 40 mg Take 1 tablet 90 tablet 4 04/01/2019 Active tabletIndications: by mouth Essential hypertension daily. pantoprazole 40 mg EC Take 40 mg by 0 Active tablet mouth daily. documented as of this encounter (statuses as of 07/08/2019) Active Problems Problem Noted Date Essential hypertension 02/23/2016 Hyperlipidemia 02/23/2016 Psoriasis 02/23/2016 documented as of this encounter (statuses as of 07/08/2019) Social History Tobacco Use Types Packs/Day Years [...] Sign Reading Time Taken Comments Blood Pressure 138/62 07/08/2019 9:49 AM CDT Pulse 78 07/08/2019 9:49 AM CDT Temperature 36.9 C (98.5 F) 07/08/2019 9:49 AM CDT Respiratory Rate - - Oxygen Saturation - - Inhaled Oxygen Concentration - - Weight 96.2 kg (212 lb) 07/08/2019 9:49 AM CDT Height 160 cm (5' 3") 07/08/2019 9:49 AM CDT Body Mass Index 37.55 07/08/2019 9:49 AM CDT documented in this encounter Progress Notes Emmett Rolle MD - 07/08/2019 10:00 AM CDT CC: follow up pancreatitis Marion is a 63 year old female Patient has seen GI in [place]; she was diagnosed with gastritis; MRI done of pancreas with minimal changes left from acute illness; no cause identified so far. Still has follow up with GI 07/17/2019 Allergies Allergen Reactions Iodine And Iodide Containing Products Other - See comments Broke out in blisters Luminal [Phenobarbital Sodium] Unknown - See comments Current Outpatient Medications Medication Sig Dispense Refill pantoprazole 40 mg EC tablet Take 40 mg by mouth daily. hydroCHLOROthiazide 12.5 mg capsule Take 1 capsule by mouth daily. 90 capsule 4 metoprolol succinate XL 100 mg 24 hr tablet Take 1 tablet by mouth daily. 90 tablet 4 olmesartan 40 mg tablet Take 1 tablet by mouth daily. 90 tablet 4 No current facility-administered medications for this visit. Past Medical History: Diagnosis Date Gastritis 06/29/2019 Hyperlipidemia Hypertension Overactive bladder Pancreatitis 05/26/2019 Psoriasis Past Surgical History: Procedure Laterality Date SECTION COLONOSCOPY 08/2018 EGD (ENDO) 06/29/2019 Social History Socioeconomic History Marital status: Spouse [...] file Gets together: Not on file Attends druze service: Not on file Active member of [...] Heart Disease Father Review of Systems BP 138/62 (BP Location: Left arm, Patient Position: Sitting, BP CUFF SIZE: Adult Large) | Pulse 78| Temp 36.9 C (98.5 F) (Oral) | Ht 5' 3" (1.6 m) | Wt 212 lb (96.2 kg) | BMI 37.55 kg/m Physical Exam Constitutional: She is oriented [...] acute pancreatitis without infection or necrosis 2. Essential hypertension Follow up: prn Patient Care Team: Emmett Rolle MD as PCP - General ([facility]-FAMILY MEDICINE) Plan of care, desired health behaviors, goals,& medication discussed with patient. Education resources & self management tools provided and reviewed with AVS. Patient/guardian/family verbalized understanding & agrees to plan of care. Barriers to care: None Ability to manage care: Good documented in this encounter Plan of Treatment Date Type Specialty Care Team Description 09/07/2019 Appointment Radiology Emmett Rolle MD [address] [place] [address] [place] [phone] Health Maintenance Due Date Last Done Comments HEPATITIS C (HCV) SCREEN 1955 DTaP,Tdap,and Td Vaccines (1 - 1976 Tdap) Zoster Recombinant Vaccine 2007 (SHINGRIX) (1 of 2) INFLUENZA VACCINE (#1) 2019 MAMMOGRAM 2019 2018 PAP SMEAR 2021 2018 COLONOSCOPY 10/17/2028 10/17/2018 PNEUMOCOCCAL 0-64 YEARS COMBINED Aged Out No longer eligible based on SERIES patient's age to complete this topic documented as of this encounter Results Not on filedocumented in this encounter Visit Diagnoses Diagnosis Idiopathic acute pancreatitis without infection or necrosis - Primary Essential hypertension Unspecified essential hypertension documented in this encounter Insurance Payer Benefit Plan Subscriber ID Effective Dates Phone Address Type / Group [facility] [id number] 2011-Stephanie [phone] [address] PPO/POS [place] - OUT OF t 87 [id number] [place] [address] documented as of this encounter
--- OUTSIDE RECORDS SUMMARY | 2019-09-05 00:10 | XMS REPORT | Summary of Care ---
:1955 Author Organization [facility] - [facility] Address [address] [place] [address] Care Team Providers Name Role Phone Emmett Rolle MD Primary Care Provider Reason for Referral MRI/CAT Scan (Routine) Status Reason Specialty Diagnoses / Referred By Referred To Procedures Contact Contact New Request Diagnostic Diagnoses Incidental pulmonary nodule Emmett Rolle Radiology Procedures CT THORAX WO CONTRAST MD [facility] [address] [facility] [place] [address] Reason for Visit Reason Comments Follow-up hospital Encounter Details Date Type Department Care Team Description 06/03/2019 Office Visit [facility] Family Emmett Rolle Idiopathic acute pancreatitis without infection or necrosis (Primary Dx); Medicine - Charmaine Ewing MD Incidental pulmonary nodule [address] [place] [address] [place] [phone] Allergies Active Allergy Reactions Severity Noted [...] file Gets together: Not on file Attends anabaptism service: Not on file Active member of [...] Treatment Date Type Specialty Care Team Description 07/06/2019 Office Visit Family Medicine Emmett Rolle MD [address] [place] [address] DR [place], SAAD [phone] Name Type Priority Associated Diagnoses Order Schedule [...] Effective Dates Phone Address Type / Group [facility] [id number] 2011-Stephanie [phone] [address] PPO/POS [place] - OUT OF [id number] [place] [address] documented as of this encounter
--- OUTSIDE RECORDS SUMMARY | 2019-09-05 00:10 | XMS REPORT | Summary of Care ---
:1955 Author Organization [facility] - [facility] Address [address] [place] [address] Care Team Providers Name Role Phone Emmett Rolle MD Primary Care Provider Encounter Details Date Type Department Care Team Description 06/16/2019 Orders Only [facility] Doctor Unassigned, No [address] [facility] [place] [address] [address] [place] [address] Allergies Active Allergy Reactions Severity Noted Date Comments Iodine And Iodide Other - See comments 01/23/2017 Broke out in Containing Products blisters Phenobarbital Sodium Unknown - See 02/23/2016 comments documented as of this encounter (statuses as of 06/16/2019) Medications Medication Sig Dispensed Refills Start Date [...] Active tabletIndications: by mouth Essential hypertension daily. documented as of this encounter (statuses as of 06/16/2019) Active Problems Problem Noted Date Essential hypertension 02/23/2016 Hyperlipidemia 02/23/2016 Psoriasis 02/23/2016 documented as of this encounter (statuses as of 06/16/2019) Social History Tobacco Use Types Packs/Day Years [...] filedocumented in this encounter Plan of Treatment Date Type Specialty Care Team Description 07/06/2019 Office Visit Family Medicine Emmett Rolle MD [address] [place] [address] [address] [place], [place]AD [phone] 09/07/2019 Appointment Radiology Emmett Rolle MD [address] [place] [address] DR [place], [place]AD [phone] Health Maintenance Due Date Last Done Comments HEPATITIS C (HCV) SCREEN 1955 DTaP,Tdap,and Td Vaccines (1 - 1976 Tdap) PAP SMEAR 1978 MAMMOGRAM 1997 COLONOSCOPY 2007 Zoster Recombinant Vaccine 2007 (SHINGRIX) (1 of 2) INFLUENZA VACCINE (#1) 2019 PNEUMOCOCCAL 0-64 YEARS COMBINED Aged Out No longer eligible based on SERIES patient's age to complete this topic documented as of this encounter Procedures Procedure Name Priority Date/Time Associated Diagnosis Comments EXTERNAL PROVIDER Routine 06/16/2019 12:01 AM CDT RECORDS documented in this encounter Results Not on filedocumented in this encounter Insurance Payer Benefit Plan Subscriber ID Effective Dates Phone Address Type / Group [facility] [id number] 2011-Stephanie [phone] [address] PPO/POS [place] - OUT OF t [id number] [place] [address] documented as of this encounter
--- OUTSIDE RECORDS SUMMARY | 2019-09-05 00:10 | XMS REPORT | Summary of Care ---
:1955 Author Organization [facility] Address [address] [place] [address] Care Team Providers Name Role Phone Emmett Rolle MD Primary Care Provider Reason for Visit Reason Comments Follow-up Encounter Details Date Type Department Care Team Description 07/08/2019 Office Visit [facility] Family Emmett Rolle Idiopathic acute pancreatitis without infection or necrosis (Primary Dx); Medicine - Charmaine Ewing MD Essential hypertension [facility] [address] [facility] [address] [facility] [address], [place] [phone] Allergies Active Allergy Reactions Severity Noted Date [...] old female Patient has seen GI in [place]; she was diagnosed with gastritis; MRI done [...] file Gets together: Not on file Attends restoration service: Not on file Active member of [...] Description 09/07/2019 Appointment Radiology Emmett Rolle MD [address] [place] [address] [place] [phone] Health Maintenance Due Date Last Done [...] Type / Group [facility] [id number] 2011-Stephanie [phone] [address] PPO/POS [place] - OUT OF t 87 [id number] [place] [address] documented as of this encounter
[2019-09-05] MEDS ORDERED: ALBUTEROL 2.5 MG/3 ML NEB SOL ONE (00:32)
[2019-09-05] MEDS ORDERED: IPRATROPIUM BROM 0.5MG/2.5ML ONE (00:33)
--- NOTE | 2019-09-05 02:51 | ER ---
Nurse's Notes [facility] Name: Marion Dawson Age: 63 yrs Sex: Female : 1955 Arrival Date: 09/05/2019 Time: 00:09 Bed 6 Private MD: Emmett Rolle Diagnosis: Acute bronchospasm;Acute bronchitis Presentation: 09/05 00:10 Presenting complaint: Patient states: "I was seen in the clinic on Saturday for common cc3 colds and since I've been having wheezes and difficulty breathing which gotten worse until tonight". Transition of care: patient was not received from another setting of care. Onset of symptoms was September 02, 2019. Risk Assessment: Do you want to hurt yourself or someone else? Patient reports no desire to harm self or others. Initial Sepsis Screen: Does the patient meet any 2 criteria? No. Patient's initial sepsis screen is negative. Does the patient have a suspected source of infection? No. Patient's initial sepsis screen is negative. Care prior to arrival: Medication(s) given: Tylenol, 2 tabs taken at home at 2230H. 00:10 Method Of Arrival: Ambulatory cc3 00:10 Acuity: YANCY 3 cc3 00:29 Note Pt states she is also currently taking amoxicillin and mucinex. aa1 Triage Assessment: 00:10 General: Appears in no apparent distress. uncomfortable, Behavior is calm, cooperative, cc3 appropriate for age. Pain: Denies pain. EENT: No signs and/or symptoms were reported regarding the EENT system. Neuro: Level of Consciousness is awake, alert, obeys commands, Oriented to person, place, time, situation, Appropriate for age. Cardiovascular: Denies chest pain, Heart tones S1 S2 present Capillary refill < 3 seconds in bilateral fingers Patient's skin is warm and dry. Respiratory: Reports shortness of breath since cough that is productive, Onset: The symptoms/episode began/occurred Saturday, the patient has mild shortness of breath. GI: Abdomen is round non-distended, Bowel sounds present X 4 quads. Abd is soft and non tender X 4 quads. : No signs and/or symptoms were reported regarding the genitourinary system. Derm: Skin is intact, is healthy with good turgor, Skin is pink, warm \\T\\ dry. normal. Musculoskeletal: Circulation, motion, and sensation intact. Range of motion: intact in all extremities. Historical: - Allergies: 00:10 Lisinopril; cc3 00:10 Phenobarbital; cc3 00:10 METRONIDAZOLE; cc3 00:10 Ciprofloxacin; cc3 00:10 pantoprazole; cc3 - Home Meds: 00:10 hydrochlorothiazide 12.5 mg Oral cap 1 cap once daily [Active]; olmesartan oral oral cc3 once daily [Active]; metoprolol tartrate 100 mg Oral tab 1 tab once daily [Active]; - PMHx: 00:10 Hypertension; Pancreatitis; Diverticulitis; cc3 - PSHx: 00:10 ; cc3 - Immunization history:: Adult Immunizations not up to date. - Social history:: Smoking status: Patient/guardian denies using tobacco, never smoked. - Ebola Screening: : No symptoms or risks identified at this time. Screenin:10 Abuse screen: Denies threats or abuse. Denies injuries from another. Nutritional cc3 screening: No deficits noted. Tuberculosis screening: No symptoms or risk factors identified. Fall Risk Ambulatory Aid- None/Bed Rest/Nurse Assist (0 pts). Gait- Normal/Bed Rest/Wheelchair (0 pts) Mental Status- Oriented to own ability (0 pts). Assessment: 00:10 Cardiovascular: Denies chest pain, Rhythm is regular. Respiratory: Airway is patent cc3 Respiratory effort is even, unlabored, Respiratory pattern is regular, symmetrical, Breath sounds are clear bilaterally. 01:12 Reassessment: Patient appears in no apparent distress at this time. Patient and/or cc3 family updated on plan of care and expected duration. Pain level reassessed. Patient is alert, oriented x 3, equal unlabored respirations, skin warm/dry/pink. Patient denies pain at this time. Patient states feeling better. Patient states symptoms have improved. 02:30 Reassessment: Patient appears in no apparent distress at this time. Patient and/or cc3 family updated on plan of care and expected duration. Pain level reassessed. Patient is alert, oriented x 3, equal unlabored respirations, skin warm/dry/pink. 03:00 Reassessment: Patient appears in no apparent distress at this time. Patient and/or cc3 family updated on plan of care and expected duration. Pain level reassessed. Patient is alert, oriented x 3, equal unlabored respirations, skin warm/dry/pink. Dr. Kapadia discharged the patient home with prescriptions given. No IV cannula in situ. Patient left ER vitally stable and ambulatory with her . No valuables left in the patient's room. Patient denies pain at this time. Patient states feeling better. Patient states symptoms have improved. Vital Signs: 00:10 BP 155 / 93; Pulse 73; Resp 18 S; Temp 98.6(O); Pulse Ox 99% on R/A; Weight 89.81 kg cc3 (R); Height 5 ft. 3 in. (160.02 cm) (R); 01:12 BP 123 / 73; Pulse 79; Resp 17 S; Pulse Ox 96% on R/A; Pain 0/10; cc3 02:30 BP 134 / 68; Pulse 85; Resp 18 S; Pulse Ox 98% on R/A; Pain 0/10; cc3 03:00 BP 114 / 71; Pulse 81; Resp 17 S; Pulse Ox 97% on R/A; Pain 0/10; cc3 00:10 Body Mass Index 35.07 (89.81 kg, 160.02 cm) cc3 ED Course: 00:09 Patient arrived in ED. es 00:10 Emmett Rolle MD is Private Physician. es 00:10 Patient has correct armband on for positive identification. Placed in gown. Bed in low cc3 position. Call light in reach. Side rails up X2. nurse monitoring on. Pulse ox on. NIBP on. 00:10 Arm band placed on right wrist. Patient notified of wait time. cc3 00:12 Albina Yepez is Primary Nurse. cc3 00:27 Triage completed. cc3 00:28 Trevon Kapadia MD is Attending Physician. tw4 02:16 CXR XRAY In Process Unspecified. EDMS 02:50 Emmett Rolle MD is Referral Physician. tw4 03:00 No provider procedures requiring assistance completed. Patient did not have IV access cc3 during this emergency room visit. Administered Medications: 00:30 Drug: DuoNeb (3:1) (2.5 mg - 0.5 mg) 3 ml Route: Nebulizer; cc3 01:00 Follow up: Response: No adverse reaction; Marked relief of symptoms cc3 Outcome: 02:50 Discharge ordered by . tw4 03:00 Discharged to home ambulatory, with family. cc3 03:00 Condition: stable 03:00 Discharge instructions given to patient, family, Instructed on discharge instructions, follow up and referral plans. medication usage, Demonstrated understanding of instructions, follow-up care, medications, Prescriptions given X 3. 03:10 Patient left the ED. cc3 Signatures: Dispatcher [employer] Alpa Henderson, RN RN aa1 Arsh, Trevon Lam MD MD tw4 Albina Yepez cc3
--- NOTE | 2019-09-05 02:51 | EDPHYS ---
Physician Documentation [facility] Name: Marion Dawson Age: 63 yrs Sex: Female : 1955 Arrival Date: 09/05/2019 Time: 00:09 Bed 6 Private MD: Emmett Rolle ED Physician Trevon Kapadia HPI: 09/05 01:10 This 63 yrs old Female presents to ER via Ambulatory with complaints of tw4 Wheezing < 1 Year, Breathing Difficulty. 01:10 The patient presents to the emergency department with wheezing, Current therapy:. tw4 Onset: The symptoms/episode began/occurred today. Modifying factors: The symptoms are alleviated by nothing, the symptoms are aggravated by animal dander. Associated signs and symptoms: The patient has no apparent associated signs or symptoms. The patient has not experienced similar symptoms in the past. Historical: - Allergies: 00:10 Lisinopril; cc3 00:10 Phenobarbital; cc3 00:10 METRONIDAZOLE; cc3 00:10 Ciprofloxacin; cc3 00:10 pantoprazole; cc3 - Home Meds: 00:10 hydrochlorothiazide 12.5 mg Oral cap 1 cap once daily [Active]; olmesartan oral oral cc3 once daily [Active]; metoprolol tartrate 100 mg Oral tab 1 tab once daily [Active]; - PMHx: 00:10 Hypertension; Pancreatitis; Diverticulitis; cc3 - PSHx: 00:10 ; cc3 - Immunization history:: Adult Immunizations not up to date. - Social history:: Smoking status: Patient/guardian denies using tobacco, never smoked. - Ebola Screening: : No symptoms or risks identified at this time. ROS: 01:10 Constitutional: Negative for fever, chills, and weight loss, Eyes: Negative for injury, tw4 pain, redness, and discharge, Cardiovascular: Negative for chest pain, palpitations, and edema, Abdomen/GI: Negative for abdominal pain, nausea, vomiting, diarrhea, and constipation, Back: Negative for injury and pain, MS/Extremity: Negative for injury and deformity, Skin: Negative for injury, rash, and discoloration, Neuro: Negative for headache, weakness, numbness, tingling, and seizure. 01:10 Respiratory: Positive for cough, with no reported sputum, wheezing. Exam: 01:10 Constitutional: This is a well developed, well nourished patient who is awake, alert, tw4 and in no acute distress. Head/Face: Normocephalic, atraumatic. Chest/axilla: Normal chest wall appearance and motion. Nontender with no deformity. No lesions are appreciated. Cardiovascular: Regular rate and rhythm with a normal S1 and S2. No gallops, murmurs, or rubs. Normal PMI, no JVD. No pulse deficits. 01:10 Abdomen/GI: Soft, non-tender, with normal bowel sounds. No distension or tympany. No guarding or rebound. No evidence of tenderness throughout. Back: No spinal tenderness. No costovertebral tenderness. Full range of motion. Skin: Warm, dry with normal turgor. Normal color with no rashes, no lesions, and no evidence of cellulitis. MS/ Extremity: Pulses equal, no cyanosis. Neurovascular intact. Full, normal range of motion. Neuro: Awake and alert, GCS 15, oriented to person, place, time, and situation. Cranial nerves II-XII grossly intact. Motor strength 5/5 in all extremities. Sensory grossly intact. Cerebellar exam normal. Normal gait. 01:10 Respiratory: the patient does not display signs of respiratory distress, Respirations: normal, Breath sounds: wheezing: Vital Signs: 00:10 BP 155 / 93; Pulse 73; Resp 18 S; Temp 98.6(O); Pulse Ox 99% on R/A; Weight 89.81 kg cc3 (R); Height 5 ft. 3 in. (160.02 cm) (R); 01:12 BP 123 / 73; Pulse 79; Resp 17 S; Pulse Ox 96% on R/A; Pain 0/10; cc3 02:30 BP 134 / 68; Pulse 85; Resp 18 S; Pulse Ox 98% on R/A; Pain 0/10; cc3 03:00 BP 114 / 71; Pulse 81; Resp 17 S; Pulse Ox 97% on R/A; Pain 0/10; cc3 00:10 Body Mass Index 35.07 (89.81 kg, 160.02 cm) cc3 MDM: 00:28 Patient medically screened. tw4 01:10 Data reviewed: vital signs, nurses notes. Counseling: I had a detailed discussion with tw4 the patient and/or guardian regarding: the historical points, exam findings, and any diagnostic results supporting the discharge/admit diagnosis. 09/05 00:36 Order name: Flu tw4 09/05 00:29 Order name: CXR XRAY tw4 Administered Medications: 00:30 Drug: DuoNeb (3:1) (2.5 mg - 0.5 mg) 3 ml Route: Nebulizer; cc3 01:00 Follow up: Response: No adverse reaction; Marked relief of symptoms cc3 Disposition: 09/05/19 02:50 Discharged to Home. Impression: Acute bronchospasm, Acute bronchitis. - Condition is Stable. - Discharge Instructions: Acute Bronchitis, Adult, Bronchospasm, Adult. - Prescriptions for Tessalon Perles 100 mg Oral Capsule - take 1 capsule by ORAL route every 8 hours As needed; 15 capsule. Medrol (Santy) 4 mg Oral Tablets, Dose Pack - take 1 tablet by ORAL route as directed - follow package instructions; 1 packet. Albuterol Sulfate 90 mcg/actuation - inhale 1-2 puff by INHALATION route every 4-6 hours; 1 Inhaler. - Medication Reconciliation Form, Thank You Letter, Antibiotic Education, Prescription Opioid Use form. - Follow up: Emmett Rolle MD; When: Upon discharge from the Emergency Department; Reason: Recheck today's complaints, Continuance of care. - Problem is new. - Symptoms have improved. Signatures: Dispatcher [employer] Trevon Lombardo MD MD tw4 Albina Yepez cc3 Corrections: (The following items were deleted from the chart) 03:10 02:50 09/05/2019 02:50 Discharged to Home. Impression: Acute bronchospasm; Acute cc3 bronchitis. Condition is Stable. Forms are Medication Reconciliation Form, Thank You Letter, Antibiotic Education, Prescription Opioid Use. Follow up: Emmett Rolle; When: Upon discharge from the Emergency Department; Reason: Recheck today's complaints, Continuance of care. Problem is new. Symptoms have improved. tw4
[2019-09-05 03:38] VITALS: TEMP 98.6
[2019-09-05 03:41] VITALS: BP 134/68; O2SAT 98
--- NOTE | 2019-09-05 10:43 | RAD REPORT ---
EXAM DESCRIPTION: RAD - Chest Single View - 09/05/2019 2:16 am CLINICAL HISTORY: SOB Chest pain. COMPARISON: No comparisons FINDINGS: Portable technique limits examination quality. The lungs are grossly clear. The heart is normal in size. No displaced fractures. IMPRESSION: No acute intrathoracic process suspected.
== END 2019-09-05 03:10 | disposition home or self-care (01) ==
LOC: ER 00:06
DX: J98.01 Acute bronchospasm (principal); J20.9 Acute bronchitis, unspecified; I10 Essential (primary) hypertension; Z88.1 Allergy status to other antibiotic agents; Z88.5 Allergy status to narcotic agent; Z88.8 Allergy status to other drugs, medicaments and biological substances
CPT/HCPCS: 71045; 87804; 94640; 99284

== ENCOUNTER 2021-06-25 15:39 | Emergency (ER) | payer BC ==
--- OUTSIDE RECORDS SUMMARY | 2021-06-25 15:43 | XMS REPORT | Continuity of Care Document ---
:1955 Author Organization [facility] t Address [address] [place] [address] Care Team Providers Name Role Phone Asked, Pcp Primary Care Physician Unavailable Jennifer Lofton Attending Clinician [phone] Vern OLVERA Attending Clinician Unavailable Mason JACINTO Attending Clinician Payers Payer Name Policy Type Policy Number Effective Date Expiration Date S ource Problems Condition Condition Condition Status Onset Resolution Last Treating Co mments Source Name Details Category Date Date Treatment Clinician Date Sludge in Sludge in Disease Active 2019-10 [facility]blad[facility]bladde [facility] r r 00:00: Hospita 00 l Idiopathic Idiopathic Disease Active [facility] acute acute 06-12 pancreatit pancreatit 00:00: Ho spita is is 00 l Abdominal Abdominal Disease Active [facility] pain pain 06-12 00:00: Hospita 00 l Esophageal Esophageal Disease Active [facility] dysphagia dysphagia 06-12 00:00: Hospita 00 l History of History of Disease Active [facility] colon colon 06-12 polyps polyps 00:00: Hospita 00 l Steatosis Steatosis Disease Active [facility] 06-12 st 00:00: Hospita 00 l Acute Acute Disease Active [facility] diarrhea diarrhea 06-12 00:00: Hospita 00 l Allergies, Adverse Reactions, Alerts Allergy Allergy Status Severity Reaction(s) Onset Inactive Treating Comm ents Source Name Type Date Date Clinician Iodine Propensi Active Rash 2018- Topical Method[facility] ty to 06-[address] adverse 00:00: Hospita reaction 00 l s to drug Phenobar Propensi Active Severe Method i bital ty to 8-23 st adverse 00:00: Hospita reaction 00 l s to drug Family History Family Member Diagnosis Comments Start Date Stop Date Source Maternal aunt Breast cancer [facility] Natural mother [facility] Natural mother Heart failure [facility] Natural mother Ovarian cancer [facility] Cousin Breast cancer [facility] Social History Social Habit Start Date Stop Date Quantity Comments Source History SDVT [facility] Std Drinks Hospit al History SDVT [facility] Tobacco use and 2020-08-02 2020-08-02 Never used [facility] exposure 00:00:00 00:00:00 Hospital Alcohol intake 2020-08-02 2020-08-02 Lifetime [facility] 00:00:00 00:00:00 non-drinker Hospital (finding) History SDOH 2020-08-02 2020-08-02 1 [facility] Alcohol Frequency 00:00:00 00:00:00 Hospita l Sex Ass[birth year] At [birth year] F [facility] 00:00:00 00:00:00 Hospital Smoking Status Start Date Stop Date Source Never smoker [facility] Medications Ordered Filled Start Stop Current Ordering Indication Dosage Frequency Signature Comments Components Source Medication Medication Date Date Medication? Clinician (SIG) Name Name TOPROL XL Yes 100mg QD Take 100 [facility] 100 mg 24 7-[address] hr tablet 00:00: mouth Hospita 00 daily. l olmesartan Yes 40mg QD Take 40 mg M [facility]i (BENICAR) [address] 40 MG 00:00: daily. Hospita tablet 00 l hydroCHLORO 2018-0 2020- No QD Take by Me thodi thiazide 6-12 10-[address] (MICROZIDE) 00:00: 00:00 daily. Hos yuridia 12.5 mg 00 :00 l capsule hydroCHLORO 2017-10 Yes TAKE 1 Meth kajal thiazide 0-[address] (MICROZIDE) 00:00: DAILY Hospi ta 12.5 mg 00 l capsule Vital Signs Vital Name Observation Time Observation Value Comments Source Body height 2020-10-07 15:10:00 160 cm [facility] Body weight 2020-10-07 15:10:00 91.627 kg [facility] BMI 2020-10-07 15:10:00 35.78 kg/m2 [facility] Procedures Procedure Date / Time Performed Performing Clinician [facility] e MRI ABDOMEN W WO 2020-10-07 16:20:46 [facility] CONTRAST POC CREATININE 2020-10-07 15:26:00 [facility] ESTIMATED GFR 2020-10-07 15:26:00 [facility] Plan of Care Planned Activity Planned Date Details Comments Source Future Scheduled Test COVID-19 VACCINE (1) [facility] [code = COVID-19 VACCINE (1)] Future Scheduled Test Hepatitis C screening [facility] (procedure) [code = 756897366] Future Scheduled Test Screening for malignant [facility] neoplasm of cervix (procedure) [code = 663210973] Future Scheduled Test BREAST CANCER SCREENING [facility] [code = BREAST CANCER SCREENING] Future Scheduled Test COLONOSCOPY SCREENING [facility] [code = COLONOSCOPY SCREENING] Future Scheduled Test SHINGLES VACCINES (#1) [facility] [code = SHINGLES VACCINES (#1)] Future Scheduled Test INFLUENZA VACCINE [code [facility] = INFLUENZA VACCINE] Encounters Start End Encounter Admission Attending Care Care Encounter Source Date/Time Date/Time Type Type Clinicians Facility Department ID 2021-05-17 2021-05-17 Outpatient [facility] [id number] 00:00:00 00:00:00 , Sakshi [id number] Jennifer [id number] 2021-05-17 Outpatient [facility] eba [id number] 00:00:00 00:00:00 , Sakshi [id number] Jennifer [id number] 2021-02-22 2021-02-22 Outpatient [facility] [id number] 00:00:00 00:00:00 , Sakshi [id number] Jennifer [id number] 2020-10-12 2020-10-12 Telephone Vern, Mei.2.840.1 [id number] [facility] 00:00:00 00:00:[address] 3.430.2.7 Hospit a .3.523245 l .8 2020-10-07 2020-10-07 [facility] Alden Cuevas 1.2.840.1 [id number] [facility] 08:57:41 23:59:[id number] 3.430.2.7 Hospit a .3.615239 l .8 2020-10-07 2020-10-07 Travel 1.2.840.1 [id number] [facility] 00:00:00 00:00:[address] 3.430.2.7 0.2.7.3.698 Ho spita .3.524185 084.8 l .8 2020-10-07 2020-10-07 Outpatient ALDEN CUE[facility] [id number] Wallace 00:00:00 00:00:[address] 2020-09-30 2020-09-30 [facility] 1.2.840.1 [id number] [facility] 10:35:41 10:50:[address] 3.430.2.7 Hospit a .3.673195 l .8 2020-09-30 2020-09-30 Outpatient ALDEN CUEVAS [facility] [id number] [place] 00:00:00 00:00:[address] 2020-08-02 2020-08-02 [facility] Alden Cuevas 1.2.840.1 [id number] Method[facility] 08:57:19 10:02:[address] [place] [address] 3.430.2.7 Hospit a .3.587909 l .8 2020-08-02 2020-08-02 Outpatient ALDEN CUEVAS [facility] [id number] Wallace 00:00:00 00:00:[address] 2019-12-25 2019-12-25 Outpatient ALDEN CUEVAS [facility] [id number] Wallace 00:00:00 00:00:[address] Results Test Description Test Time Test Comments Results Result Sour e Comments MRI Abdomen W Wo 2020-09-20 EXAMINATION: MRI M ethodist Contrast 8 ABDOMEN W WO CONTRAST Hos pital 21:49:59 CLINICAL HISTORY: 64 years 1955 K85.00 Idiopathic acute pancreatitis without necrosis or infection, pancreas cyst COMPARISON: Abdominal MRI dated 12/25/2019 TECHNIQUE: Multiplanar, multisequence MRI of the upper abdomen with and without intravenous gadolinium. FINDINGS: LIVER: Moderate diffuse fatty infiltration of the liver. No focal mass or ductal dilation. GALLBLADDER: Unremarkable. SPLEEN: No splenomegaly. PANCREAS: Interval resolution of T1/T2 signal heterogeneity seen on the prior examination. No focal masses or ductal dilation. ADRENALS: No adrenal nodules. KIDNEYS: Bilateral subcentimeter simple cysts. No hydronephrosis or solid masses. GI TRACT: No obstruction. PERITONEUM/RETROPERIT ONEUM: No free fluid. No lymphadenopathy. VASCULATURE: Abdominal aorta is nonaneurysmal. BONES AND SOFT TISSUES: No suspicious lesions IMPRESSION: 1.No evidence of pancreatic mass or ductal dilation. Interval resolution of post-pancreatitis pancreatic head signal heterogeneity. 2.Moderate hepatic steatosis. [facility]-[id number] Dictated and approved by assistant professor of radiology/fellow: Giovanni Hood M.D. I, Sanjay Shah MD, personally reviewed the images and resident's/fellow's findings and agree with the final report.[facility], Radiology Results Incoming - 10/07/2020 3:53 PM CST EXAMINATION: MRI ABDOMEN W WO CONTRASTCLINICAL HISTORY: 64 years 1955 K85.00 Idiopathic acute pancreatitis without necrosis or infection, pancreas cystCOMPARISON: Abdominal MRI dated 12/25/2019TECHNIQUE: Multiplanar, multisequence MRI of the upper abdomen with and without intravenous gadolinium.FINDINGS:L IVER: Moderate diffuse fatty infiltration of the liver. No focal mass or ductal dilation.GALLBLADDER: Unremarkable.SPLEEN: No splenomegaly.PANCREAS : Interval resolution of T1/T2 signal heterogeneity seen on the prior examination. No focal masses or ductal dilation.ADRENALS: No adrenal nodules.KIDNEYS: Bilateral subcentimeter simple cysts. No hydronephrosis or solid masses.GI TRACT: No obstruction.PERITONEU M/RETROPERITONEUM: No free fluid. No lymphadenopathy.VASCU LATURE: Abdominal aorta is nonaneurysmal.BONES AND SOFT TISSUES: No suspicious lesionsIMPRESSION:1.N o evidence of pancreatic mass or ductal dilation. Interval resolution of post-pancreatitis pancreatic head signal heterogeneity.2.Moder ate hepatic steatosis.[facility]-[id number] and approved by assistant professor of radiology/fellow: Giovanni Hood M.D.I, Sanjay Shah MD, personally reviewed the images and resident's/fellow's findings and agree with the final report.
--- NOTE | 2021-06-25 18:15 | RAD REPORT ---
EXAM DESCRIPTION: RAD - Chest Single View - 06/25/2021 6:08 pm CLINICAL HISTORY: cough COMPARISON: <Comparisons> FINDINGS: Lines: None. Lungs: No evidence of edema or pneumonia. Pleural: No significant pleural effusions or pneumothorax. Cardiac: The heart size is within normal limits. Bones: No acute fractures. Other: IMPRESSION: No acute cardiopulmonary disease.
[2021-06-25] MEDS ORDERED: NA CHLORIDE 0.9% 1,000 ML ONE (20:25)
[2021-06-25] MEDS ORDERED: ACETAMINOPHEN 500 MG TAB ONE (20:25)
[2021-06-25] MEDS ORDERED: METHYLPREDNISOLONE 125 MG INJ ONE (20:25)
[2021-06-25] MEDS ORDERED: IPRATROPIUM BROM 0.5MG/2.5ML ONE (20:38)
[2021-06-25] MEDS ORDERED: ALBUTEROL 2.5 MG/3 ML NEB SOL ONE (20:38)
[2021-06-25 20:39] LABS: Absolute Lymphocytes (CBC) 0.9 K/uL (0.7-4.9); Basophils % 0.6 % (0-1.3); Hematocrit 42.4 % (36.0-45.0); Lymphocytes % 10.1 % (15.3-44.8); MPV 8.3 fL (7.6-11.3); Protime INR 0.99; RBC Red Blood Cell Count 4.95 M/uL (3.86-4.86)
[2021-06-25 20:55] LABS: ALT/SGPT 29 U/L (12-78); AST/SGOT 19 U/L (15-37); Albumin 3.9 g/dL (3.4-5.0); Alkaline Phosphatase 105 U/L (45-117); BUN Blood Urea Nitrogen 7 mg/dL (7-18); Bicarbonate 27 mmol/L (21-32); Bilirubin Direct 0.2 mg/dL (0-0.2); Bilirubin Total 0.8 mg/dL (0.2-1.0); Glucose Level 105 mg/dL (74-106); NT PRO-BNP 131 pg/mL (<125); Potassium 3.4 mmol/L (3.5-5.1); Protein, Total 7.3 g/dL (6.4-8.2); Sodium Level 138 mmol/L (136-145); Troponin (Emerg Dept Use Only) < 0.02 ng/mL (0.0-0.045)
--- NOTE | 2021-06-25 21:44 | ER ---
Nurse's Notes [facility] Name: Marion Dawson Age: 65 yrs Sex: Female : 1955 Arrival Date: 06/25/2021 Time: 15:41 Bed 14 Private MD: Diagnosis: Acute Bronchitis;Acute Pharyngitis Presentation: 06/25 17:18 Chief complaint: Patient states: sore throat since yesterday. Pt reports wheezing and aa5 coughing today. Pt denies fever. Coronavirus screen: cough unrelated to allergies, sore throat. Ebola Screen: Patient negative for fever greater than or equal to 101.5 degrees Fahrenheit, and additional compatible Ebola Virus Disease symptoms. Initial Sepsis Screen: Does the patient meet any 2 criteria? No. Patient's initial sepsis screen is negative. Does the patient have a suspected source of infection? No. Patient's initial sepsis screen is negative. Risk Assessment: Do you want to hurt yourself or someone else? Patient reports no desire to harm self or others. Onset of symptoms was June 2021. 17:18 Method Of Arrival: Ambulatory aa5 17:18 Acuity: YANCY 3 aa5 Historical: - Allergies: 17:19 Ciprofloxacin; aa5 17:19 Lisinopril; aa5 17:19 metronidazole; aa5 17:19 pantoprazole; aa5 17:19 Phenobarbital; aa5 - PMHx: 17:19 Diverticulitis; Hypertension; Pancreatitis; aa5 - Immunization history:: Client reports having NOT received the Covid vaccine. - Social history:: Smoking status: Patient denies any tobacco usage or history of. Screenin:22 Abuse screen: Denies threats or abuse. Denies injuries from another. Nutritional ch5 screening: No deficits noted. Tuberculosis screening: No symptoms or risk factors identified. Fall Risk None identified. Assessment: 18:22 Pain: Denies pain. Cardiovascular: No deficits noted. Respiratory: Airway is patent ch5 Respiratory effort is even, Breath sounds with wheezes. Vital Signs: 17:19 BP 166 / 98; Pulse 81; Resp 18 S; Temp 98.0(TE); Pulse Ox 98% on R/A; Weight 99.79 kg aa5 (R); Height 5 ft. 4 in. (162.56 cm) (R); 18:22 BP 163 / 85; Pulse 6; Resp 20; Pulse Ox 99% on R/A; Pain 0/10; ch5 18:48 BP 148 / 78; Pulse 87; Resp 20; Pulse Ox 98% on R/A; ch5 22:15 BP 151 / 87; Pulse 96; Resp 17; Temp 98.2; Pulse Ox 98% on R/A; ch4 22:15 BP 175 / 95; Pulse 89; Resp 18; Temp 98.1; Pulse Ox 100% on R/A; ch4 17:19 Body Mass Index 37.76 (99.79 kg, 162.56 cm) 5 ED Course: 15:41 Patient arrived in ED. as 17:18 Arm band placed on. aa5 17:19 Triage completed. 5 18:15 Dain Ortiz, RN is Primary Nurse. 5 18:22 Bed in low position. Call light in reach. Side rails up X 1. 5 18:22 No provider procedures requiring assistance completed. 5 18:44 [facility] 19:02 Edwin Villegas MD is Attending Physician. [facility] 20:20 Inserted saline lock: 22 gauge in left antecubital area, using aseptic technique. Blood ds4 collected. 22:18 IV discontinued, intact, bleeding controlled, No redness/swelling at site. Pressure ch4 dressing applied. Administered Medications: 20:03 Drug: SOLU-Medrol (methylPrednisoLONE) 125 mg Route: IVP; Site: right antecubital; ch4 20:03 Drug: Tylenol 1000 mg Route: PO; ch4 20:03 Drug: NS 0.9% 1000 ml Route: IV; Rate: 1000 ml; Site: right antecubital; ch4 20:17 Drug: Albuterol 2.5 mg Route: Inhalation; ch4 20:17 Drug: AtroVENT (ipratropium) Aerosol 0.5 mg Route: Inhalation; ch4 Outcome: 21:43 Discharge ordered by . [facility] 22:18 Patient left the ED. [facility] Signatures: Lakeisha Godoy Audri, RN RN 5 Napoleon Barrera ds4 Edwin Villegas MD MD 7 Aura Hardwick RN RN [facility] Dain Ortiz, RAMON RN 5 Corrections: (The following items were deleted from the chart) 17:20 17:19 Pulse 81bpm; Resp 18bpm; Spontaneous; Pulse Ox 98% RA; Temp 98.0F Temporal; 99.79 aa5 kg Reported; Height 5 ft. 4 in. Reported; BMI: 37.7; aa5
--- NOTE | 2021-06-25 21:44 | EDPHYS ---
Physician Documentation [facility] Name: Marion Dawson Age: 65 yrs Sex: Female : 1955 Arrival Date: 06/25/2021 Time: 15:41 Bed 14 Private MD: ED Physician Edwin Villegas HPI: 06/25 19:20 This 65 yrs old Female presents to ER via Ambulatory with complaints of mh7 Wheezing > 1 Year. 19:20 The patient or guardian reports cough, that is intermittent, described as mild, with no mh7 sputum, Sore throat, wheezing. 19:20 Onset: The symptoms/episode began/occurred yesterday. Severity of symptoms: At their mh7 worst the symptoms were moderate, this morning, in the emergency department the symptoms have improved, moderately. Modifying factors: The symptoms are alleviated by nothing, the symptoms are aggravated by Lying down. Associated signs and symptoms: Pertinent positives: sore throat, Pertinent negatives: chest pain, diarrhea, ear ache, fever, nausea, rhinorrhea, vomiting. Patient reports having sore throat that started yesterday. She reports cough and wheezing today. She denies any fever, chest pain, shortness of breath, abdominal pain, nausea, vomiting, diarrhea, dizziness, dysuria, numbness/tingling, or weakness. She denies any recent travel or sick contacts.. Historical: - Allergies: 17:19 Ciprofloxacin; aa5 17:19 Lisinopril; aa5 17:19 metronidazole; aa5 17:19 pantoprazole; aa5 17:19 Phenobarbital; aa5 - PMHx: 17:19 Diverticulitis; Hypertension; Pancreatitis; aa5 - Immunization history:: Client reports having NOT received the Covid vaccine. - Social history:: Smoking status: Patient denies any tobacco usage or history of. ROS: 19:20 Constitutional: Negative for fever, chills, and weight loss, Eyes: Negative for injury, mh7 pain, redness, and discharge, Neck: Negative for injury, pain, and swelling, Cardiovascular: Negative for chest pain, palpitations, and edema, Abdomen/GI: Negative for abdominal pain, nausea, vomiting, diarrhea, and constipation, Back: Negative for injury and pain, : Negative for injury, bleeding, discharge, and swelling, MS/Extremity: Negative for injury and deformity, Skin: Negative for injury, rash, and discoloration, Neuro: Negative for headache, weakness, numbness, tingling, and seizure, Psych: Negative for depression, anxiety, suicide ideation, homicidal ideation, and hallucinations, Allergy/Immunology: Negative for hives, rash, and allergies, Endocrine: Negative for neck swelling, polydipsia, polyuria, polyphagia, and marked weight changes, Hematologic/Lymphatic: Negative for swollen nodes, abnormal bleeding, and unusual bruising. Exam: 19:20 Constitutional: This is a well developed, well nourished patient who is awake, alert, mh7 and in no acute distress. Head/Face: Normocephalic, atraumatic. Eyes: Pupils equal round and reactive to light, extra-ocular motions intact. Lids and lashes normal. Conjunctiva and sclera are non-icteric and not injected. Cornea within normal limits. Periorbital areas with no swelling, redness, or edema. ENT: Nares patent. No nasal discharge, no septal abnormalities noted. Tympanic membranes are normal and external auditory canals are clear. Oropharynx with no redness, swelling, or masses, exudates, or evidence of obstruction, uvula midline. Mucous membranes moist. Neck: Trachea midline, no thyromegaly or masses palpated, and no cervical lymphadenopathy. Supple, full range of motion without nuchal rigidity, or vertebral point tenderness. No Meningismus. Chest/axilla: Normal chest wall appearance and motion. Nontender with no deformity. No lesions are appreciated. Cardiovascular: Regular rate and rhythm with a normal S1 and S2. No gallops, murmurs, or rubs. Normal PMI, no JVD. No pulse deficits. 19:20 Abdomen/GI: Soft, non-tender, with normal bowel sounds. No distension or tympany. No guarding or rebound. No evidence of tenderness throughout. Back: No spinal tenderness. No costovertebral tenderness. Full range of motion. Skin: Warm, dry with normal turgor. Normal color with no rashes, no lesions, and no evidence of cellulitis. MS/ Extremity: Pulses equal, no cyanosis. Neurovascular intact. Full, normal range of motion. Neuro: Awake and alert, GCS 15, oriented to person, place, time, and situation. Cranial nerves II-XII grossly intact. Motor strength 5/5 in all extremities. Sensory grossly intact. Cerebellar exam normal. Normal gait. Psych: Awake, alert, with orientation to person, place and time. Behavior, mood, and affect are within normal limits. 19:20 Respiratory: the patient does not display signs of respiratory distress, Respirations: prolonged exhalation, that is mild, Breath sounds: rhonchi, that are mild, are scattered, wheezing: expiratory that is mild, is scattered, Respiratory rate: 20 Vital Signs: 17:19 BP 166 / 98; Pulse 81; Resp 18 S; Temp 98.0(TE); Pulse Ox 98% on R/A; Weight 99.79 kg aa5 (R); Height 5 ft. 4 in. (162.56 cm) (R); 18:22 BP 163 / 85; Pulse 6; Resp 20; Pulse Ox 99% on R/A; Pain 0/10; ch5 18:48 BP 148 / 78; Pulse 87; Resp 20; Pulse Ox 98% on R/A; ch5 22:15 BP 151 / 87; Pulse 96; Resp 17; Temp 98.2; Pulse Ox 98% on R/A; ch4 22:15 BP 175 / 95; Pulse 89; Resp 18; Temp 98.1; Pulse Ox 100% on R/A; ch4 17:19 Body Mass Index 37.76 (99.79 kg, 162.56 cm) aa5 MDM: 21:41 Differential Diagnosis: Obstructed Airway Bronchitis Influenza Upper Respiratory mh7 Infection Sinusitis Pharyngitis Allergic Rhinitis Asthma Exacerbation Viral Syndrome Pneumonia. Data reviewed: vital signs, nurses notes, old medical records, lab test result(s), cardiac enzymes, CBC, electrolytes, Flu: negative Covid negative, strep negative, EKG, radiologic studies, plain films. Data interpreted: Pulse oximetry: on room air is 98 %. Counseling: I had a detailed discussion with the patient and/or guardian regarding: the historical points, exam findings, and any diagnostic results supporting the discharge/admit diagnosis, the presence of at least one elevated blood pressure reading (>120/80) during this emergency department visit, lab results, radiology results, the need for outpatient follow up, to return to the emergency department if symptoms worsen or persist or if there are any questions or concerns that arise at home. Response to treatment: the patient's symptoms have resolved after treatment, the patient's blood pressure is in an acceptable range, mental status has returned to baseline, the patient no longer shows bradycardia, the patient is not short of breath, the patient is not tachycardic, the patient's pain is gone, the patient's temperature has normalized, patient is well hydrated. 21:43 Patient medically screened. [facility] 06/25 18:19 Order name: [facility] 06/25 18:44 Order name: Group A Streptococcus Rapid Sc; Complete Time: 19:06 [facility] 06/25 18:47 Order name: Influenza Screen (A ; Complete Time: 19:06 [facility] 06/25 19:30 Order name: Basic Metabolic Panel [facility] 06/25 19:30 Order name: CBC with Diff [facility] 06/25 19:30 Order name: LFT's [facility] 06/25 19:30 Order name: Magnesium [facility] 06/25 19:30 Order name: NT PRO-BNP [facility] 06/25 19:30 Order name: PT-INR [facility] 06/25 19:30 Order name: Troponin (emerg Dept Use Only) [facility] 06/25 19:30 Order name: SARS-COV-2 RT PCR; Complete Time: 19:47 [facility] 06/25 20:42 Order name: CBC with Automated Diff; Complete Time: 21:16 [facility] 06/25 20:42 Order name: Protime (+INR); Complete Time: 21:16 [facility] 06/25 20:56 Order name: Basic Metabolic Panel; Complete Time: 21:16 [facility] 06/25 18:17 Order name: RAD; Complete Time: 19:06 [facility] 06/25 19:30 Order name: EKG; Complete Time: 21:19 [facility] 06/25 19:30 Order name: Cardiac monitoring; Complete Time: 20:04 [facility] 06/25 19:30 Order name: EKG - Nurse/Tech; Complete Time: 20:04 [facility] 06/25 19:30 Order name: IV Saline Lock; Complete Time: 20:04 [facility] 06/25 19:30 Order name: Labs collected and sent; Complete Time: 20:04 [facility] 06/25 20:56 Order name: Liver (Hepatic) Function; Complete Time: 21:16 [facility] 06/25 20:56 Order name: Troponin (Emerg Dept Use Only); Complete Time: 21:16 [facility] 06/25 20:56 Order name: NT PRO-BNP; Complete Time: 21:16 [facility] 06/25 20:56 Order name: Magnesium; Complete Time: 21:16 [facility] 06/25 21:49 Order name: Throat Culture [facility] 06/25 19:30 Order name: O2 Per Protocol; Complete Time: 20:04 [facility] 06/25 19:30 Order name: O2 Sat Monitoring; Complete Time: 20:04 [facility] Administered Medications: 20:03 Drug: SOLU-Medrol (methylPrednisoLONE) 125 mg Route: IVP; Site: right antecubital; ch4 20:03 Drug: Tylenol 1000 mg Route: PO; ch4 20:03 Drug: NS 0.9% 1000 ml Route: IV; Rate: 1000 ml; Site: right antecubital; ch4 20:17 Drug: Albuterol 2.5 mg Route: Inhalation; ch4 20:17 Drug: AtroVENT (ipratropium) Aerosol 0.5 mg Route: Inhalation; ch4 Disposition Summary: 06/25/21 21:43 Discharge Ordered Location: Home [facility] Problem: new [facility] Symptoms: have improved [facility] Condition: Stable [facility] Diagnosis - Acute Bronchitis 7 - Acute Pharyngitis [facility] Followup: [facility] - With: Private Physician - When: 1 - 2 days - Reason: Worsening of condition, Recheck today's complaints, Continuance of care, Re-evaluation by your physician Discharge Instructions: - Acute Bronchitis, Adult, [id number] - Pharyngitis, [id number] [facility] - Discharge Summary Sheet ch5 Forms: - SBAR form ch5 - Medication Reconciliation Form [facility] - Thank You Letter [facility] - Antibiotic Education [facility] - Prescription Opioid Use [facility] Prescriptions: - albuterol sulfate 90 mcg/actuation Inhalation HFA aerosol inhaler - inhale 2 puff by INHALATION route every 6 hours As needed; 1 Inhaler; Refills: [facility] 0, Product Selection Permitted - Tessalon Perles 100 mg Oral Capsule - take 1 capsule by ORAL route every 8 hours As needed; 15 capsule; Refills: 0, 7 Product Selection Permitted - Zithromax Z-Santy 250 mg Oral Tablet - take 1 tablet by ORAL route as directed for 5 days Day 1 - take two (2) tablets [facility] one time. Day 2, 3, 4 , 5 take one (1) tablet once daily.; 6 tablet; Refills: 0, Product Selection Permitted - Prednisone 20 mg Oral Tablet - take 2 tablets by ORAL route once daily for 5 days; 10 tablet; Refills: 0, 7 Product Selection Permitted Signatures: Dispatcher [employer] Ashley Velazquez RN RN aa5 Edwin Villegas MD MD mh7 Aura Hardwick RN RN ch4
[2021-06-25 22:37] VITALS: BP 175/95; TEMP 98.1; O2SAT 100
--- NOTE | 2021-06-27 10:59 | EKG ---
Test Date: 2021-06-25 Test Time: 20:37:31 [employer] Supervisor: ANAI MEASUREMENT RESULTS: Intervals: Rate: 93 SC: 184 QRSD: 78 QT: 374 QTc: 465 [place]: P: 57 SC: 184 QRS: -25 T: 70 INTERPRETIVE STATEMENTS: Normal sinus rhythm Low voltage QRS Cannot rule out Anterior infarct, age undetermined Abnormal ECG Compared to ECG 10/16/2005 09:02:36 Low QRS voltage now present Myocardial infarct finding now present Electronically Signed On 06-27-21 10:54:29 CDT by Misbah Sparks
== END 2021-06-25 22:18 | disposition home or self-care (01) ==
LOC: ER 15:39
DX: J20.9 Acute bronchitis, unspecified (principal); I10 Essential (primary) hypertension; Z88.1 Allergy status to other antibiotic agents; Z88.8 Allergy status to other drugs, medicaments and biological substances; Z20.822 Contact with and (suspected) exposure to COVID-19
CPT/HCPCS: 93005; 87070; 85025; 80048; 36415; 83735; 85610; 80076; 87081; 84484; 83880; 87804 ×2; 71045; 96374; 99284; U0003; J7030; J2930